=== PATIENT | female | born 1935 | race Caucasian/White ===

== ENCOUNTER 2017-04-08 15:13 | Inpatient (IN) | payer MEDICARE, BC ==
[~2017-04-08] VITALS: Ht 167.6 cm; Wt 76.0 kg
[2017-04-08 15:23] VITALS: BP 124/58; PULSE 74; RESP 18; TEMP 98.7; O2SAT 99
[2017-04-08] MEDS ORDERED: SODIUM CHLORIDE 0.9% FLUSH 10 ML FLUSH IVF PRN (15:30)
[2017-04-08] MEDS ORDERED: ONDANSETRON HCL 4 MG/2 ML VIAL IV PUSH ONE (15:30)
[2017-04-08] MEDS ORDERED: MORPHINE SULFATE 2 MG/ML INJ IV PUSH ONE (15:30)
--- NOTE | 2017-04-08 15:37 | PD ---
HPI Chief Complaint: Fall Time Seen by Provider: 15:24 Travel History International Travel<30 days: No Contact w/Intl Traveler<30days: No Traveled to known affect area: No History of Present Illness HPI 81-year-old female with history of COPD, diabetes, breast cancer, lymphoma, with right-sided mastectomy, presents to the emergency department for evaluation of left hip pain following a fall. Patient was leaving the smart energy specialist's office today when her left leg "gave out." Patient fell to the ground. She was unable to help herself up. Patient went to a neighboring imaging Center and was found to have a femoral neck fracture. We have looked this up through her system and confirmed this. Patient does have shortening and rotation of the left lower extremity. She reports moderate to severe constant pain and inability to move the hip without significant pain. She did not hit her head or lose consciousness. She denies any alterations in sensation. Patient also reports that she has developed a cough over the last week to week and a half with mild shortness of breath. She has had no fever and states that her "checks it constantly." Patient also reports scheduled paracentesis on Tuesday for ascites. She has no other symptoms to report at this time. [facility] Past Medical History Cancer: Yes Diabetes: Yes Hypertension: Yes Social History Alcohol Use: No Tobacco Use: No Substance Use: No Allergies-Medications (Allergen,Severity, Reaction): Coded Allergies: No Known Allergies (Unverified , 04/08/17) Reported Meds & Prescriptions Reported Meds & Active Scripts Active Reported Ventolin Hfa 18 GM Inh (Albuterol Sulfate) 90 Mcg/Act Aer 1 Puff INH Q4H PRN Utibron Neohaler 27.5-15.6 Mcg (Indacaterol/Glycopyrrolate) 27.5 Mcg-15.6 Mcg Cap.w.dev Lasix (Furosemide) 40 Mg Tab 40 Mg PO DAILY Verapamil (Verapamil HCl) 80 Mg Tab 80 Mg PO DAILY Ropinirole 1 Mg Tab 1 Mg HS Oxybutynin ER 24 HR (Oxybutynin Chloride) 10 Mg Tab 10 Mg PO DAILY Omeprazole 40 Mg Cap 40 Mg DAILY Metformin (Metformin HCl) 500 Mg Tab 500 Mg PO BIDPC Lisinopril 10 Mg Tab 10 Mg PO BID Pravastatin 10 Mg Tab 10 Mg PO DAILY Gabapentin 300 Mg Cap 300 Mg PO TID Colace (Docusate Sodium) 100 Mg Capsule Review of Systems Except as stated in HPI: all other systems reviewed are Neg Physical Exam Narrative GENERAL: Well-nourished elderly female patient, sitting in bed in no acute distress. SKIN: Focused skin assessment warm/dry. HEAD: Atraumatic. Normocephalic. EYES: Pupils equal and round. No scleral icterus. No injection or drainage. ENT: No nasal bleeding or discharge. Mucous membranes pink and moist. NECK: Trachea midline. No JVD. CARDIOVASCULAR: Elevated rate and rhythm. RESPIRATORY: No accessory muscle use. Coarse throughout, diminished bases to auscultation. Breath sounds equal bilaterally. Left anterior port in place. GASTROINTESTINAL: Abdomen rotund, soft, non-tender, nondistended. Hepatic and splenic margins not palpable. MUSCULOSKELETAL: No obvious deformities. No clubbing. No cyanosis. No edema. Shortening and rotation of the left lower extremity. Distal pulses are palpable. Cap refill is within normal limits. NEUROLOGICAL: Awake and alert. No obvious cranial nerve deficits. Motor grossly within normal limits. Normal speech. PSYCHIATRIC: Appropriate mood and affect; insight and judgment normal. Data Data Last Documented VS Vital Signs Date Time Temp Pulse Resp B/P (MAP) Pulse Ox O2 Delivery O2 Flow Rate FiO2 04/08/17 18:00 70 18 116/53 (74) 94 Nasal Cannula 2.00 04/08/17 15:23 98.7 Orders Orders Electrocardiogram (04/08/17 15:25) Basic Metabolic Panel (Bmp) (04/08/17 15:25) Complete Blood Count With Diff (04/08/17 15:25) Prothrombin Time / Inr (Pt) (04/08/17 15:25) Act Partial Throm Time (Ptt) (04/08/17 15:25) Chest, Single Ap (04/08/17 15:25) Ecg Monitoring (04/08/17 15:25) Bilateral Bp Monitoring (04/08/17 15:25) Iv Access Insert/Monitor (04/08/17 15:25) Oximetry (04/08/17 15:25) Oxygen Administration (04/08/17 15:25) Sodium Chloride 0.9% Flush (Ns Flush) (04/08/17 15:30) Morphine Inj (Morphine Inj) (04/08/17 15:30) Ondansetron Inj (Zofran Inj) (04/08/17 15:30) Admit Order (Ed Use Only) (04/08/17 18:21) Consult Orthopedic (04/08/17 ) Labs Laboratory Tests Test 04/08/17 16:00 White Blood Count 10.8 TH/MM3 Red Blood Count 3.04 MIL/MM3 Hemoglobin 8.5 GM/DL Hematocrit 25.4 % Mean Corpuscular Volume 83.5 FL Mean Corpuscular Hemoglobin 28.0 PG Mean Corpuscular Hemoglobin Concent 33.5 % Red Cell Distribution Width 18.0 % Platelet Count 69 TH/MM3 Mean Platelet Volume 10.5 FL Neutrophils (%) (Auto) 80.2 % Lymphocytes (%) (Auto) 4.5 % Monocytes (%) (Auto) 14.6 % Eosinophils (%) (Auto) 0.5 % Basophils (%) (Auto) 0.2 % Neutrophils # (Auto) 8.7 TH/MM3 Lymphocytes # (Auto) 0.5 TH/MM3 Monocytes # (Auto) 1.6 TH/MM3 Eosinophils # (Auto) 0.1 TH/MM3 Basophils # (Auto) 0.0 TH/MM3 CBC Comment AUTO DIFF Differential Comment AUTO DIFF CONFIRMED Platelet Estimate LOW Platelet Morphology Comment NORMAL Ovalocytes 1+ Keratocytes OCC Prothrombin Time 12.6 SEC Prothromb Time International Ratio 1.2 RATIO Activated Partial Thromboplast Time 34.3 SEC Blood Urea Nitrogen 19 MG/DL Creatinine 0.95 MG/DL Random Glucose 117 MG/DL Calcium Level 7.9 MG/DL Sodium Level 141 MEQ/L Potassium Level 3.6 MEQ/L Chloride Level 108 MEQ/L Carbon Dioxide Level 24.4 MEQ/L Anion Gap 9 MEQ/L Estimat Glomerular Filtration Rate 56 ML/MIN [facility] Medical Decision Making Medical Screen Exam Complete: Yes Emergency Medical Condition: Yes Medical Record Reviewed: Yes Differential Diagnosis Fracture versus sprain versus dislocation versus contusion Narrative Course 81-year-old female presents to the emergency department for evaluation left hip injury. X-ray imaging is obtained through [facility] and femoral neck fracture is confirmed. Patient is treated for pain. Preop lab work and chest x-ray is complete. Laboratory Tests Test 04/08/17 16:00 White Blood Count 10.8 TH/MM3 Red Blood Count 3.04 MIL/MM3 Hemoglobin 8.5 GM/DL Hematocrit 25.4 % Mean Corpuscular Volume 83.5 FL Mean Corpuscular Hemoglobin 28.0 PG Mean Corpuscular Hemoglobin Concent 33.5 % Red Cell Distribution Width 18.0 % Platelet Count 69 TH/MM3 Mean Platelet Volume 10.5 FL Neutrophils (%) (Auto) 80.2 % Lymphocytes (%) (Auto) 4.5 % Monocytes (%) (Auto) 14.6 % Eosinophils (%) (Auto) 0.5 % Basophils (%) (Auto) 0.2 % Neutrophils # (Auto) 8.7 TH/MM3 Lymphocytes # (Auto) 0.5 TH/MM3 Monocytes # (Auto) 1.6 TH/MM3 Eosinophils # (Auto) 0.1 TH/MM3 Basophils # (Auto) 0.0 TH/MM3 CBC Comment AUTO DIFF Differential Comment AUTO DIFF CONFIRMED Platelet Estimate LOW Platelet Morphology Comment NORMAL Ovalocytes 1+ Keratocytes OCC Prothrombin Time 12.6 SEC Prothromb Time International Ratio 1.2 RATIO Activated Partial Thromboplast Time 34.3 SEC Blood Urea Nitrogen 19 MG/DL Creatinine 0.95 MG/DL Random Glucose 117 MG/DL Calcium Level 7.9 MG/DL Sodium Level 141 MEQ/L Potassium Level 3.6 MEQ/L Chloride Level 108 MEQ/L Carbon Dioxide Level 24.4 MEQ/L Anion Gap 9 MEQ/L Estimat Glomerular Filtration Rate 56 ML/MIN Last Impressions Chest X-Ray 04/08/17 1525 Signed Impressions: Service Date/Time: Saturday, April 08, 2017 16:13 - CONCLUSION: 1. Mild consolidation in the right lung base concerning for pneumonia or 2. Air is also more patchy airspace disease in both lower lobes as well. 3. Status post right mastectomy and axillary dissection. Rell Flores MD Have reviewed the findings with my attending physician. We'll defer antibiotic coverage for possible pneumonia to medicine team patient is afebrile and without leukocytosis. She does have a history of this lady's and is to have paracentesis on Tuesday per her report. I discussed the patient with the resident team. Patient be admitted to their service. Consult has been placed orthopedic surgery. Diagnosis Primary Impression: Left displaced femoral neck fracture Additional Impressions: Lung consolidation Ascitic fluid Qualified Codes: R18.8 - Other ascites Admitting Information Admitting Physician Requests: Admit Condition: Stable Lindsay Rosa IKER Apr 08, 2017 15:37
[2017-04-08 15:44] VITALS: BP 128/60; PULSE 72; RESP 20; O2SAT 94
--- NOTE | 2017-04-08 16:37 | RADRPT ---
EXAM DATE/TIME: 04/08/2017 16:13 [place] COMPARISON: No previous studies available for comparison. INDICATIONS : Patient presents with fractured hip post fall. MEDICAL HISTORY : None. SURGICAL HISTORY : ACF ENCOUNTER: Initial ACUITY: 1 day PAIN SCORE: 2/10 LOCATION: Bilateral upper chest FINDINGS: A single portable AP supine view of the chest was obtained and demonstrates mild consolidation of the right lung base. There is more patchy airspace disease in both lower lobes. The heart size is within normal limits. There are atherosclerotic changes in the aorta. There is a left subclavian central ve nous detectable catheter in place with no pneumothorax. Patient is status post lower cervical fusion. Patient status post right mastectomy and axillary dissection. CONCLUSION: 1. Mild consolidation in the right lung base concerning for pneumonia or 2. Air is also more patchy airspace disease in both lower lobes as well. 3. Status post right mastectomy and axillary dissection. Rell Flores MD on April 08, 2017 at 16:33 Board Certified Radiologist. This report was verified electronically.
[2017-04-08 16:44] LABS: AUTOMATED NEUTROPHIL # 8.7 TH/MM3 (1.8-7.7); BASOPHIL % 0.2 % (0.0-2.0); EOSINOPHIL # 0.1 TH/MM3 (0-0.4); EOSINOPHIL % 0.5 % (0.0-4.0); HEMATOCRIT 25.4 % (35.0-46.0); HEMOGLOBIN 8.5 GM/DL (11.6-15.3); LYMPH % 4.5 % (9.0-44.0); LYMPHOCYTE # 0.5 TH/MM3 (1.0-4.8); MEAN CELL VOLUME 83.5 FL (80.0-100.0); MEAN CORPUSCULAR HGB CONC 33.5 % (32.0-36.0); MEAN PLATELET VOLUME 10.5 FL (7.0-11.0); MONO % 14.6 % (0.0-8.0); MONOCYTE # 1.6 TH/MM3 (0-0.9); NEUT % 80.2 % (16.0-70.0); PLATELET COUNT 69 TH/MM3 (150-450); RED BLOOD COUNT 3.04 MIL/MM3 (4.00-5.30); WHITE BLOOD COUNT 10.8 TH/MM3 (4.0-11.0)
[2017-04-08 16:54] LABS: INTERNATIONAL NORMALIZED RATIO 1.2 RATIO; PROTHROMBIN TIME - PATIENT 12.6 SEC (9.8-11.6)
[2017-04-08 17:10] LABS: BICARBONATE 24.4 MEQ/L (21.0-32.0); CALCIUM 7.9 MG/DL (8.5-10.1); CREATININE 0.95 MG/DL (0.50-1.00)
--- NOTE | 2017-04-08 17:11 | PD ---
Data Data Last Documented VS Vital Signs Date Time Temp Pulse Resp B/P (MAP) Pulse Ox O2 Delivery O2 Flow Rate FiO2 04/08/17 15:44 72 20 128/60 (82) 94 Nasal Cannula 2.00 04/08/17 15:23 98.7 Orders Orders Electrocardiogram (04/08/17 15:25) Basic Metabolic Panel (Bmp) (04/08/17 15:25) Complete Blood Count With Diff (04/08/17 15:25) Prothrombin Time / Inr (Pt) (04/08/17 15:25) Act Partial Throm Time (Ptt) (04/08/17 15:25) Chest, Single Ap (04/08/17 15:25) Ecg Monitoring (04/08/17 15:25) Bilateral Bp Monitoring (04/08/17 15:25) Iv Access Insert/Monitor (04/08/17 15:25) Oximetry (04/08/17 15:25) Oxygen Administration (04/08/17 15:25) Sodium Chloride 0.9% Flush (Ns Flush) (04/08/17 15:30) Morphine Inj (Morphine Inj) (04/08/17 15:30) Ondansetron Inj (Zofran Inj) (04/08/17 15:30) Labs Laboratory Tests Test 04/08/17 16:00 White Blood Count 10.8 TH/MM3 Red Blood Count 3.04 MIL/MM3 Hemoglobin 8.5 GM/DL Hematocrit 25.4 % Mean Corpuscular Volume 83.5 FL Mean Corpuscular Hemoglobin 28.0 PG Mean Corpuscular Hemoglobin Concent 33.5 % Red Cell Distribution Width 18.0 % Platelet Count 69 TH/MM3 Mean Platelet Volume 10.5 FL Neutrophils (%) (Auto) 80.2 % Lymphocytes (%) (Auto) 4.5 % Monocytes (%) (Auto) 14.6 % Eosinophils (%) (Auto) 0.5 % Basophils (%) (Auto) 0.2 % Neutrophils # (Auto) 8.7 TH/MM3 Lymphocytes # (Auto) 0.5 TH/MM3 Monocytes # (Auto) 1.6 TH/MM3 Eosinophils # (Auto) 0.1 TH/MM3 Basophils # (Auto) 0.0 TH/MM3 CBC Comment AUTO DIFF Prothrombin Time 12.6 SEC Prothromb Time International Ratio 1.2 RATIO Activated Partial Thromboplast Time 34.3 SEC Blood Urea Nitrogen 19 MG/DL Creatinine 0.95 MG/DL Random Glucose 117 MG/DL Calcium Level 7.9 MG/DL Sodium Level 141 MEQ/L Potassium Level 3.6 MEQ/L Chloride Level 108 MEQ/L Carbon Dioxide Level 24.4 MEQ/L Anion Gap 9 MEQ/L Estimat Glomerular Filtration Rate 56 ML/MIN MDM Supervised Visit with AZAM: Yes Narrative Course The history, exam, and medical decision-making in the associated mid-level provider note were completed with my assistance. I reviewed and agree with the findings presented. I attest that I had a [id number] encounter with the patient on the same day, and personally performed and documented my assessment and findings in the medical record. *My assessment and Findings: 81-year-old woman, mechanical fall, outpatient imaging confirmed femoral neck fracture. Will need admission to medicine. OrthO consult. Eyal Chang MD Apr 08, 2017 17:11
[2017-04-08 17:32] LABS: OVALOCYTES 1+ (NORMAL)
[2017-04-08 17:33] LABS: KERATOCYTES OCC (NORMAL)
[2017-04-08 18:00] VITALS: BP 116/53; PULSE 70; RESP 18; O2SAT 94
[2017-04-08] MEDS ORDERED: VENTAER INH (18:18)
[2017-04-08] MEDS ORDERED: PRAV10TA PO (18:18)
[2017-04-08] MEDS ORDERED: METF500T PO (18:18)
[2017-04-08] MEDS ORDERED: VERA80TA PO (18:18)
[2017-04-08] MEDS ORDERED: GABA300C5 PO (18:18)
[2017-04-08] MEDS ORDERED: ROPI1TAB (18:18)
[2017-04-08] MEDS ORDERED: COLA100C5 (18:18)
[2017-04-08] MEDS ORDERED: OXYB10TA PO (18:18)
[2017-04-08] MEDS ORDERED: FURO1TAB60 PO (18:18)
[2017-04-08] MEDS ORDERED: INDA1CAP2 (18:18)
[2017-04-08] MEDS ORDERED: LISI10TA3 PO (18:18)
[2017-04-08] MEDS ORDERED: OMEP40CA2 (18:18)
--- NOTE | 2017-04-08 18:51 | HHI.HP ---
[facility] Service Family Medicine Primary Care Physician Cornell Jordan M.D. Admission Diagnosis L femoral neck fracture; pulmonary infiltrate; hx of infiltrates Diagnoses: International Travel<30 Days: No Contact w/Intl Traveler<30days: No Known Affected Area: No History of Present Illness Mrs. Rodriguez is a 81 y/o F presenting to the ED after a fall. 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 This resulted in her full and hip first to the ground. She immediately felt 10/10 hip pain on the left side. She denies any "pop" to her knowledge. She is able to remember the whole episode and there is no loss of consciousness. After falling, she then presented to an outpatient radiology Center in the [facility]. There she was diagnosed with a left femoral neck fracture. Her only other complaint today is abdominal distention. She reports that she is scheduled for a ascitic fluid drainage on Tuesday at 0800. However she is unable to complete her past medical history cannot inform the medical team of her medications or prior diagnoses. She is currently requesting that drainage occur while she is in the hospital. Otherwise she has no complaints and denies any fevers, chills, shortness of breath, chest, back, abdominal pain, or calf tenderness. (Fredy Main MD R2) Review of Systems Constitutional: DENIES: Fever, Chills Eyes: DENIES: Blurred vision, Double Vision Ears, nose, mouth, throat: DENIES: Throat pain, Running Nose Respiratory: COMPLAINS OF: Cough, DENIES: Shortness of breath Cardiovascular: DENIES: Chest pain, Syncope Gastrointestinal: DENIES: Diarrhea, Nausea, Vomiting Genitourinary: DENIES: Dysuria Musculoskeletal: COMPLAINS OF: Joint pain, Muscle aches, Back pain Integumentary: DENIES: Rash Hematologic/lymphatic: DENIES: Lymphadenopathy Immunologic/allergic: DENIES: Urticaria Neurologic: DENIES: Headache Psychiatric: DENIES: Mood changes (Fredy Main MD R2) Past Family Social History Past Medical History Per chart review, COPD, diabetes, breast cancer, lymphoma Past Surgical History Per chart review, right mastectomy (Fredy Main MD R2) Allergies: Coded Allergies: No Known Allergies (Unverified , 04/08/17) Family History Patient does not report significant family medical history Social History Patient currently lives in a condo during the winter with her from [place]. Patient denies any tobacco, alcohol, or illicit drug history. (Fredy Main MD R2) Physical Exam Vital Signs Vital Signs Date Time Temp Pulse Resp B/P (MAP) Pulse Ox O2 Delivery O2 Flow Rate FiO2 04/08/17 18:00 70 18 116/53 (74) 94 Nasal Cannula 2.00 04/08/17 15:44 72 20 128/60 (82) 94 Nasal Cannula 2.00 04/08/17 15:40 94 Nasal Cannula 2.00 04/08/17 15:38 74 18 94 Nasal Cannula 2.00 04/08/17 15:23 98.7 74 18 124/58 (80) 99 Physical Exam GENERAL: Well-nourished, well-developed female lying in bed in no acute distress. SKIN: Warm and dry. No rash. Multiple skin gutierrez from hitting the pavement S/P fall. No acute bleeding or sites of infection appreciated. Left elbow: Distal left elbow with large blood soaked bandage. Sensation, strength, and range of motion all intact. HEENT: Atraumatic, normocephalic with extraocular motions intact. No rhinorrhea. No visible lymphadenopathy or jugulovenous distension appreciated. CARDIOVASCULAR: Regular rate and rhythm with 2/6 systolic ejection murmur. 2+ pulses in all 4 extremities. RESPIRATORY: Coarse breath sounds throughout both lung dougherty. Poor variation overall secondary to poor inspiratory effort. No increased work of breathing at this time. Left anterior port in place. No crackles, wheezes, or rhonchi appreciated. GASTROINTESTINAL: Abdomen soft, non-tender, nondistended with positive bowel sounds. No masses appreciated. MUSCULOSKELETAL: No cyanosis or edema. No calf tenderness. LLE: Extremity shortened, externally rotated left lower extremity. Pain throughout the extremity with any type of manipulation. Appropriate sensation and warmth appreciated throughout the extremity. Patient able to move all 5 foot digits well. 2+ DP/PT pulses. NEURO/PSYCH: Afocal. Awake, alert, and oriented x3, but is unable to complete full history. Normal speech and judgement. Laboratory Laboratory Tests Test 04/08/17 16:00 White Blood Count 10.8 Red Blood Count 3.04 Hemoglobin 8.5 Hematocrit 25.4 Mean Corpuscular Volume 83.5 Mean Corpuscular Hemoglobin 28.0 Mean Corpuscular Hemoglobin Concent 33.5 Red Cell Distribution Width 18.0 Platelet Count 69 Mean Platelet Volume 10.5 Neutrophils (%) (Auto) 80.2 Lymphocytes (%) (Auto) 4.5 Monocytes (%) (Auto) 14.6 Eosinophils (%) (Auto) 0.5 Basophils (%) (Auto) 0.2 Neutrophils # (Auto) 8.7 Lymphocytes # (Auto) 0.5 Monocytes # (Auto) 1.6 Eosinophils # (Auto) 0.1 Basophils # (Auto) 0.0 CBC Comment AUTO DIFF Differential Comment AUTO DIFF CONFIRMED Platelet Estimate LOW Platelet Morphology Comment NORMAL Ovalocytes 1+ Keratocytes OCC Prothrombin Time 12.6 Prothromb Time International Ratio 1.2 Activated Partial Thromboplast Time 34.3 Blood Urea Nitrogen 19 Creatinine 0.95 Random Glucose 117 Calcium Level 7.9 Sodium Level 141 Potassium Level 3.6 Chloride Level 108 Carbon Dioxide Level 24.4 Anion Gap 9 Estimat Glomerular Filtration Rate 56 (Fredy Main MD R2) Result Diagram: 04/08/17 1600 04/08/17 1600 Imaging Last 72 hours Impressions Chest X-Ray 04/08/17 1525 Signed Impressions: Service Date/Time: Saturday, April 08, 2017 16:13 - CONCLUSION: 1. Mild consolidation in the right lung base concerning for pneumonia or 2. Air is also more patchy airspace disease in both lower lobes as well. 3. Status post right mastectomy and axillary dissection. Rell Flores MD Pelvis X-Ray 04/08/17 0000 Signed Impressions: Service Date/Time: Saturday, April 08, 2017 20:27 - CONCLUSION: Acute left proximal femur fracture which has the appearance of an intratrochanteric fracture on this limited view. Placido Steward MD (Fredy Main MD R2) Caprini VTE Risk Assessment Caprini VTE Risk Assessment: Mod/High Risk (score >= 2) Caprini Risk Assessment Model Point Value = 1 Point Value = 2 Point Value = 3 Point Value = 5 Age 41-60 Minor surgery BMI > 25 kg/m2 Swollen legs Varicose veins or History of unexplained or recurrent spontaneous Oral contraceptives or hormone replacement Sepsis (< 1 month) Serious lung disease, including pneumonia (< 1 month) Abnormal pulmonary function Acute myocardial infarction Congestive heart failure (< 1 month) History of inflammatory bowel disease Medical patient at bed rest Age 61-74 Arthroscopic surgery Major open surgery (> 45 min) Laparoscopic surgery (> 45 min) Malignancy Confined to bed (> 72 hours) Immobilizing plaster cast Central venous access Age >= 75 History of VTE Family history of VTE Factor V Leiden Prothrombin [id number] Lupus anticoagulant Anticardiolipin antibodies Elevated serum homocysteine Heparin-induced thrombocytopenia Other congenital or acquired thrombophilia Stroke (< 1 month) Elective arthroplasty Hip, pelvis, or leg fracture Acute spinal cord injury (< 1 month) Prophylaxis Regimen Total Risk Factor Score Risk Level Prophylaxis Regimen 0-1 Low Early ambulation 2 Moderate Order ONE of the following: *Sequential Compression Device (SCD) *Heparin 5000 units SQ BID 3-4 Higher Order ONE of the following medications: *Heparin 5000 units SQ TID *Enoxaparin/Lovenox 40 mg SQ daily (WT < 150 kg, CrCl > 30 mL/min) *Enoxaparin/Lovenox 30 mg SQ daily (WT < 150 kg, CrCl > 10-29 mL/min) *Enoxaparin/Lovenox 30 mg SQ BID (WT < 150 kg, CrCl > 30 mL/min) AND/OR *Sequential Compression Device (SCD) 5 or more Highest Order ONE of the following medications: *Heparin 5000 units SQ TID (Preferred with Epidurals) *Enoxaparin/Lovenox 40 mg SQ daily (WT < 150 kg, CrCl > 30 mL/min) *Enoxaparin/Lovenox 30 mg SQ daily (WT < 150 kg, CrCl > 10-29 mL/min) *Enoxaparin/Lovenox 30 mg SQ BID (WT < 150 kg, CrCl > 30 mL/min) AND *Sequential Compression Device (SCD) (Ferdy Main MD R2) Assessment and Plan Assessment and Plan Mrs. Rodriguez is a 81-year-old female presenting with left femoral neck fracture after fall found to have community acquired pneumonia. Code Status Full code Discussed Condition With SHAKA Graves (Fredy Main MD R2) Attending Attestation THIS CASE WAS DISCUSSED WITH THE RESIDENT PHYSICIANS. I HAVE REVIEWED THE RECORD AND AGREE WITH THE ABOVE NOTE AND PLAN OF CARE WAS DISCUSSED. I HAVE AUTHORIZED THE ORDER FOR ADMISSION TO AN IN-PATIENT STATUS. (Steve Pinzon MD) Problem List: (1) Left displaced femoral neck fracture ICD Codes: S72.002A - Fracture of unspecified part of neck of left femur, initial encounter for closed fracture Status: Acute Plan: -Pelvis x-ray: Acute left proximal femur fracture which has the appearance of an intratrochanteric fracture on this limited view -Orthopedic surgery consulted, patient nothing by mouth after midnight for possible procedure in a.m. -Eloy when necessary for pain control with morphine when necessary for breakthrough pain -Ice packs to affected area (2) Community acquired bacterial pneumonia ICD Codes: J15.9 - Unspecified bacterial pneumonia Status: Acute Plan: -CXR shows mild consolidation in right lung base concerning for pneumonia. Patchy airspace disease in both lower lobes as well. Status post right mastectomy and axillary dissection. -WBC 10.8, neutrophil % 80.2, temp 98.2 supporting infectious eitiology. -Azithromycin 500 mg IV every 24 hours x 5 days. -Rocephin 1 g IV every 24 hours for duration of hospitalization. -Duonebs and albuterol every 4 hours when necessary for shortness of breath/ wheezing -Supplemental O2 and pulse ox monitoring. -Acapella, incentive spirometer. -Tylenol, Tessalon available as PRNs. (3) COPD (chronic obstructive pulmonary disease) ICD Codes: J44.9 - Chronic obstructive pulmonary disease, unspecified Status: Chronic Plan: -Breathing treatments as above -Spriva daily in place of utibron inhaler -Incentive spirometer, acapella, respiratory cpt (4) Ascitic fluid ICD Codes: R18.8 - Other ascites Status: Acute Plan: -Patient with appointment on 04/12/17, for ascitic fluid drainage (5) Tremor ICD Codes: R25.1 - Tremor, unspecified Status: Chronic Plan: -Continue ropinirole (6) Diabetes mellitus ICD Codes: E11.9 - Type 2 diabetes mellitus without complications Status: Chronic Plan: -Hold home metformin -Continue gabapentin and pravastatin -Sliding scale insulin per protocol (7) HTN (hypertension) ICD Codes: I10 - Essential (primary) hypertension Status: Chronic Plan: -Continue Lasix, lisinopril, and verapamil (8) Nutrition, metabolism, and development symptoms ICD Codes: R63.8 - Other symptoms and signs concerning food and fluid intake Status: Acute Plan: -Diet: Nothing by mouth after midnight for possible procedure in a.m. -Fluids: Patient tolerating fluids currently by mouth -Electrolytes: Within normal limits, continue to monitor (9) No contraindication to deep vein thrombosis (DVT) prophylaxis ICD Codes: Z78.9 - Other specified health status Status: Acute Plan: -Hold pharmacological DVT prophylaxis for possible procedure -SCDs to unaffected leg (Fredy Main MD R2) Physician Certification 2 Midnight Certification Type: Admission for Inpatient Services Order for Inpatient Services The services are ordered in accordance with Medicare regulations or non- Medicare payer requirements, as applicable. In the case of services not specified as inpatient-only, they are appropriately provided as inpatient services in accordance with the 2-midnight benchmark. Estimated LOS (days): 3 3 days is the estimated time the patient will need to remain in the hospital, assuming treatment plan goals are met and no additional complications. Post-Hospital Plan: Home (Fredy Main MD R2) Problem Qualifiers (1) Ascitic fluid: Qualified Codes: R18.8 - Other ascites Fredy Main MD R2 Apr 08, 2017 18:51 Steve Pinzon MD Apr 09, 2017 10:49
[2017-04-08 19:15] VITALS: BP 109/56; PULSE 75; RESP 18; O2SAT 97
[2017-04-08] MEDS ORDERED: ALBUTEROL SULFATE 90 MCG/ACT HFA 8 GM INHALER INH PRN (19:30)
[2017-04-08] MEDS ORDERED: GLUCAGON 1 MG/ML VIAL OTHER PRN (19:30)
[2017-04-08] MEDS ORDERED: DEXTROSE 50% IN WATER 50 ML VIAL(D50) IV PUSH PRN (19:30)
[2017-04-08] MEDS ORDERED: BISACODYL 10 MG SUPP RECTAL PRN (19:45)
[2017-04-08] MEDS ORDERED: MAGNESIUM HYDROXIDE SUSP 30 ML CUP PO PRN (19:45)
[2017-04-08] MEDS ORDERED: RESP: ALBUTEROL 2.5 MG/IPRATROPIUM 0.5 MG NEB (PRN) INH (19:45)
[2017-04-08] MEDS ORDERED: MORPHINE SULFATE 2 MG/ML INJ IV PUSH PRN (19:45)
[2017-04-08] MEDS ORDERED: SODIUM CHLORIDE 0.9% FLUSH 10 ML FLUSH IV FLUSH PRN (19:45)
[2017-04-08] MEDS ORDERED: ACETAMINOPHEN/HYDROcodone 325 MG/5 MG TAB PO PRN (19:45)
[2017-04-08] MEDS ORDERED: NALOXONE HCL 0.4 MG/ML AMP IV PUSH PRN ×2 (19:45)
[2017-04-08] MEDS ORDERED: ONDANSETRON HCL 4 MG/2 ML VIAL IVP PRN (19:45)
[2017-04-08] MEDS ORDERED: ACETAMINOPHEN 325 MG TAB PO PRN (19:45)
[2017-04-08] MEDS ORDERED: ACETAMINOPHEN/HYDROcodone 325 MG/7.5 MG TAB PO PRN (19:45)
[2017-04-08 19:49] VITALS: O2SAT 98
--- NOTE | 2017-04-08 20:21 | MB ---
cc: GRACE SHEPPARD M.D. DATE OF CONSULTATION: 04/08/2017. REASON FOR CONSULTATION: Left hip fracture. HISTORY OF PRESENT ILLNESS: The patient is an 81-year-old female who has a history of COPD, diabetes, breast cancer, lymphoma and right-sided mastectomy. The patient came to the emergency room after she had a fall at the managed care manager's office. She says typically her walks next to her to give her some stability for ambulation but he was not there at that time and she fell. She said that her left leg gave out on her and she landed onto the left hip and noticed immediate pain. She went to obtain imaging studies at [facility]. She was found to have a hip fracture. She was then sent to the emergency room. The patient describes pain around the left hip. She says that the left elbow did have a skin laceration which was tended to by the emergency room but ultimately this does not cause her a significant amount of pain. PAST MEDICAL HISTORY: Her medical history is as above. Just a history of cancer as previously described and hypertension. SOCIAL HISTORY: The patient does not smoke or drink alcohol. ALLERGIES: NO KNOWN DRUG ALLERGIES. MEDICATIONS: See the chart. According to the chart, I do not see her on any blood thinners. REVIEW OF SYSTEMS: A twelve-point review of systems is negative except as noted in the history of present illness. FAMILY HISTORY: Noncontributory. PHYSICAL EXAMINATION: VITAL SIGNS: On physical examination, the patient's temperature is 98.7, pulse is 70, respirations 18, blood pressure 116/53. GENERAL: The patient is awake, alert and oriented times three. She has normal affect, insight and judgment with minimal distress. HEAD, EYES, EARS, NOSE, THROAT: Her head is atraumatic. Oropharynx is moist. Extraocular muscles are intact. NECK: The neck is supple. LUNGS: Lungs do show some rhonchi. HEART: Regular rhythm. ABDOMEN: Abdomen is soft and nontender. EXTREMITIES: The left upper extremity has Tegaderm applied with moderate bleeding around this. Her elbow range of motion was good without any pain. Examination of the left hip shows some minimal swelling. No wounds were noted. She actively moves the toes well on the left foot. She has 2+ dorsalis pedis pulse. The left knee had no tenderness. The right knee and ankle had no tenderness. Normal alignment. She is neurovascularly intact on the right lower extremity. IMAGING STUDIES: I reviewed imaging which are on [facility] and show the patient has a left hip displaced femoral neck fracture. X-rays of the femur were not significantly remarkable other than the fracture of the hip. LABORATORY STUDIES: Normal white count at 10.8 but a low hematocrit at 25.4 with low platelets of 69,000. Coagulation studies show an INR of 1.2. Chemistries: Creatinine is 0.95. IMPRESSION: 1. Left hip displaced femoral neck fracture. 2. Left elbow laceration. 3. History of COPD. 4. Diabetes. 5. Breast cancer. 6. Lymphoma. 7. Hypertension. DECISION-MAKING: I discussed the diagnosis in detail with the patient. We will continue with conservative management for the left elbow skin tear. As far as the left hip is concerned, I do feel that we should move forward with urgent surgical management, nonoperative management will likely lead to severe dysfunction of the leg including potentially inability to ambulate long-term which could lead to bed sores, pneumonia, DVT and . I do recommend the urgent surgical management to consist of left hip hemiarthroplasty. She understands there are risks associated with surgery such as injury to nerves, blood vessels, bleeding, infection, failure of hardware, need for re-operation, continued pain, loss of range of motion of associated joints, leg length discrepancy, dislocation, DVT, pulmonary embolus, pneumonia and . Based on the x-ray examination, I did not see obvious signs of metastatic disease about the hip based on the x-rays since she does have a history of the breast cancer. She does have a low hematocrit as well which definitely increases the chance of her requiring postoperative transfusion. We will postoperative course including potential need for inpatient rehabilitation. All questions have been answered. MD NOELLE Locke/LUMA /7:53 PM /8:01 PM
[2017-04-08 20:35] VITALS: BP 110/53; PULSE 83; RESP 20; TEMP 98.4; O2SAT 100
[2017-04-08] MEDS: INSULIN ASPART SUPPLEMENTAL SCALE SQ SCH (21:00)
[2017-04-08] MEDS ORDERED: AZITHROMYCIN INJ 500 MG in SODIUM CHLOR 0.9% 250 ML INJ 250 ML IV SCH (21:00)
[2017-04-08] MEDS: SODIUM CHLOR 0.9% 1000 ML INJ 1,000 ML IV SCH (21:22)
[2017-04-08] MEDS: DOCUSATE SODIUM 50 MG/SENNA 8.6 MG TAB PO SCH (21:23)
[2017-04-08] MEDS: SODIUM CHLORIDE 0.9% FLUSH 10 ML FLUSH IV FLUSH SCH (21:23)
[2017-04-08] MEDS: LISINOPRIL 10 MG TAB PO SCH (21:23)
--- NOTE | 2017-04-08 21:48 | RADRPT ---
EXAM DATE/TIME: 04/08/2017 20:27 [facility] COMPARISON: No previous studies available for comparison. INDICATIONS : Left hip pain post fall. MEDICAL HISTORY : None. SURGICAL HISTORY : None. ENCOUNTER: Initial ACUITY: 1 day PAIN SCORE: 10/10 LOCATION: Left hip FINDINGS: There is an acute left proximal femur fracture which has the appearance of an intratrochanteric fract ure on this limited view. CONCLUSION: Acute left proximal femur fracture which has the appearance of an intratrochanteric f racture on this limited view. Placido Steward MD on April 08, 2017 at 21:44 Board Certified Radiologist. This report was verified electronically.
[2017-04-08] MEDS ORDERED: cefTRIAXone INJ 1,000 MG in SODIUM CHLORIDE 0.9% INJ 100 ML IV SCH (22:00)
[2017-04-09] VITALS (13 sets, daily range): BP systolic 94–161; BP diastolic 48–74; PULSE 58–102; RESP 16–23; TEMP 95.5–98.9; O2SAT 92–100
[2017-04-09] MEDS ORDERED: POVIDONE IODINE 5% (ANTISEPSIS KIT) 4 APPLICATIONS EACH NARE PRN (01:15)
[2017-04-09] MEDS ORDERED: CHLORHEXIDINE GLUCONATE 2 % 1 PACK (2 CLOTHS) TOPICAL PRN (01:15)
[2017-04-09] MEDS ORDERED: METOPROLOL TARTRATE 25 MG TAB PO PRN (01:15)
[2017-04-09] MEDS ORDERED: LACTATED RINGER'S 1000 ML IV PRN (01:15)
[2017-04-09] MEDS ORDERED: SODIUM CHLORID 0.9% 500 ML IV PRN (01:15)
[2017-04-09] MEDS: SODIUM CHLOR 0.9% 1000 ML INJ 1,000 ML IV SCH ×4 (06:14→19:30)
[2017-04-09 06:42] LABS: AUTOMATED NEUTROPHIL # 6.4 TH/MM3 (1.8-7.7); BASOPHIL % 0.2 % (0.0-2.0); EOSINOPHIL # 0.1 TH/MM3 (0-0.4); EOSINOPHIL % 0.9 % (0.0-4.0); HEMATOCRIT 21.7 % (35.0-46.0); HEMOGLOBIN 7.2 GM/DL (11.6-15.3); LYMPHOCYTE # 0.7 TH/MM3 (1.0-4.8); MEAN CELL VOLUME 82.3 FL (80.0-100.0); MEAN CORPUSCULAR HEMOGLOBIN 27.5 PG (27.0-34.0); MEAN CORPUSCULAR HGB CONC 33.4 % (32.0-36.0); MEAN PLATELET VOLUME 10.4 FL (7.0-11.0); MONO % 20.2 % (0.0-8.0); MONOCYTE # 1.8 TH/MM3 (0-0.9); NEUT % 70.7 % (16.0-70.0); PLATELET COUNT 60 TH/MM3 (150-450); RED BLOOD COUNT 2.64 MIL/MM3 (4.00-5.30); RED CELL DISTRIBUTION WIDTH 17.8 % (11.6-17.2); WHITE BLOOD COUNT 9.1 TH/MM3 (4.0-11.0)
[2017-04-09] MEDS ORDERED: VANCOMYCIN HCL 1000 MG VIAL ONE (07:12)
[2017-04-09] MEDS ORDERED: GENTAMICIN SULFATE 80 MG/2 ML VIAL ONE (07:12)
[2017-04-09] MEDS ORDERED: ceFAZolin INJ 1,000 MG VIAL ONE (07:12)
[2017-04-09 07:13] LABS: ALBUMIN 2.6 GM/DL (3.4-5.0); BICARBONATE 26.1 MEQ/L (21.0-32.0); CALCIUM 7.4 MG/DL (8.5-10.1); CALCIUM-PROTEIN CORRECTED 8.7 MG/DL (8.5-10.1); CREATININE 0.89 MG/DL (0.50-1.00); TOTAL BILIRUBIN ADULT 0.6 MG/DL (0.2-1.0); TOTAL PROTEIN 4.8 GM/DL (6.4-8.2)
[2017-04-09] MEDS ORDERED: TRANEXAMIC ACID INJ 700 MG in SODIUM CHLORIDE 0.9% INJ 100 ML IV ONE (07:45)
[2017-04-09 07:57] LABS: KERATOCYTES OCC (NORMAL); OVALOCYTES 1+ (NORMAL)
[2017-04-09] MEDS: PRAVASTATIN SOD 10 MG TAB PO SCH (09:00)
[2017-04-09] MEDS: TOLTERODINE TARTRATE 4 MG CAP LA PO SCH (09:00)
[2017-04-09] MEDS: DOCUSATE SODIUM 50 MG/SENNA 8.6 MG TAB PO SCH ×2 (09:00→20:16)
[2017-04-09] MEDS: TIOTROPIUM BROMIDE 18 MCG INH INH SCH (09:00)
[2017-04-09] MEDS: LISINOPRIL 10 MG TAB PO SCH ×2 (09:00→20:16)
[2017-04-09] MEDS: PANTOPRAZOLE SOD 40 MG DELAYED RELEASE TAB PO SCH (09:00)
[2017-04-09] MEDS: SODIUM CHLORIDE 0.9% FLUSH 10 ML FLUSH IV FLUSH SCH ×2 (09:00→20:16)
[2017-04-09] MEDS: FUROSEMIDE 40 MG TAB PO SCH (09:00)
[2017-04-09] MEDS: VERAPAMIL HCL 80 MG TAB PO SCH (09:00)
[2017-04-09] MEDS: GABAPENTIN 300 MG CAP PO SCH ×3 (09:00→17:19)
--- NOTE | 2017-04-09 09:13 | PD.OP ---
cc: Chad Gordon MD Operative Report Date of Surgery: Apr 09, 2017 Preoperative Diagnosis: Left hip displaced femoral neck fracture Postoperative Diagnosis: Same Procedure: Left hip hemiarthroplasty Anesthesia: Gen. Surgeon: Chad Gordon Power Hammer Operator(s): IKER Mondragon The surgical procedure was assisted by my Advanced Registered Nurse Practitioner. My ENGINEERING DESIGNER presence was necessary throughout this case for the manipulation and positioning of the surgical extremity. My ENGINEERING DESIGNER was assisting me throughout the duration of this procedure. The skill set of an Advance Registered Nurse Practitioner was medically necessary to complete this procedure. During the surgical case, the surgical clinical reviewer was working at the back table and the Advance Registered Nurse Practitioner was directly assisting me. Operation and Findings: IMPLANT DESCRIPTION: 1. Corail femoral stem size 12, no collar, standard offset. 2. Bipolar femoral head/neck 49/28, +1.5. ESTIMATED BLOOD LOSS: 100 cc. JUSTIFICATION FOR PROCEDURE: This patient has a displaced femoral neck fracture. The patient understands the risks of surgery include but are not limited to injury to nerves, blood vessels, bleeding, infection, leg length discrepancy, continued pain, inability to ambulate, DVT, pulmonary embolus, pneumonia, stroke, heart attack, and . PROCEDURE: The patient was brought back to the operative theatre. Adequate anesthesia was obtained. The patient received intravenous and vancomycin and Ancef. The patient was carefully placed on the operative table in the lateral decubitus position with an axillary roll and a well-padded down leg. The lower extremity was prepped and draped in the usual sterile fashion. We proceeded with a standard curvilinear incision centered around the tip of the greater trochanter. We then dissected through the deep fascia and placed a Charnley retractor protecting the sciatic nerve. The greater trochanteric bursa was reflected. We then incised through the piriformis attachment and tagged this with a #2 FiberWire. We then incised through the capsule in a T- shaped fashion and tagged this with a #2 FiberWire as well. We identified a displaced femoral neck fracture. An osteotomy was performed through the residual femoral neck. This bone was then removed followed by removal of the femoral head. The acetabulum was inspected and adequate cartilage stock was identified. We then trialed the femoral head in the acetabulum. The proximal femur was prepared with a rongeur, then a box osteotome, then a canal finder followed by a lateralizing reamer. We sequentially broached the proximal femur. We calcar planed the proximal femur and irrigated removing any remnants of the bone. We trialed the hip with the broach in place. The final femoral stem was impacted into position. Leg lengths were evaluated. We evaluated stability of the hip with the hip in the "position of sleep" and the hip flexed up to 90 and internally rotated. We additionally tested both a "shuck" test and hip extension, confirming there was no undue tension while flexing the knee to 90 during full hip extension. The final bipolar head was impacted and the hip was reduced. Once again we irrigated. We then repaired the capsule and the piriformis with the FiberWire suture. The deep fascia was closed with a #2 Stratafix, followed by 2-0 Vicryl in the skin and Dermabond dressing. The post-op plan is to weight-bear as tolerated. We will follow posterior total hip precautions, including the use of a canvas knee splint. DVT prophylaxis will be performed with SCDtoñito, ZENOBIA ibarra, early mobilization, and Lovenox followed by aspirin. Chad Gordon MD Apr 09, 2017 09:12
[2017-04-09] MEDS ORDERED: ENOX40IN SQ (09:15)
[2017-04-09] MEDS ORDERED: ASPI-146 PO (09:15)
[2017-04-09] MEDS ORDERED: NORC5TAB PO (09:15)
[2017-04-09] MEDS ORDERED: DO NOT ADM ANY ANTICOAGULANT DRUGS PRN (09:23)
[2017-04-09] MEDS ORDERED: ALUMINUM/MAGNESIUM/SIMETH 30 ML CUP PO PRN (09:30)
[2017-04-09] MEDS ORDERED: diphenhydrAMINE HCL 50 MG/ML VIAL IV PUSH PRN (09:45)
[2017-04-09] MEDS ORDERED: ONDANSETRON HCL 4 MG/2 ML VIAL IVP PRN (09:45)
[2017-04-09] MEDS ORDERED: NALOXONE HCL 0.4 MG/ML AMP IV PUSH PRN (09:45)
[2017-04-09] MEDS ORDERED: Post-op Orders (for Pharmacy) XX ONE (10:00)
[2017-04-09] MEDS ORDERED: FUROSEMIDE 20 MG/2 ML VIAL IV PUSH SCH (10:00)
[2017-04-09 10:05] LABS: BACTERIA, URINE FEW /hpf; BILIRUBIN, URINE NEG (NEG); BLOOD, URINE MOD (NEG); GLUCOSE,URINE NEG (NEG); KETONE, URINE NEG (NEG); MUCUS URINE MANY /lpf (OCC); NITRITE,URINE NEG (NEG); PH, URINE 5.5 (5.0-8.5); SQUAMOUS EPITHELIAL CELL URINE 10 /hpf (0-5); URINE COLOR YELLOW (YELLW/STRAW); URINE LEUKOCYTE ESTERASE LARGE (NEG); WHITE BLOOD CELL CLUMPS MANY
[2017-04-09] MEDS: INSULIN ASPART SUPPLEMENTAL SCALE SQ SCH ×4 (10:07→21:12)
--- NOTE | 2017-04-09 10:32 | RADRPT ---
EXAM DATE/TIME: 04/09/2017 09:46 [facility] COMPARISON: No previous studies available for comparison. INDICATIONS : Post op left hip replacement MEDICAL HISTORY : None. SURGICAL HISTORY : None. ENCOUNTER: Initial ACUITY: 1 day PAIN SCORE: 0/10 LOCATION: Left hip FINDINGS: Examination of the left hip was performed with AP Pelvis. Left hip prosthesis. No hardware loosening or fracture. Postsurgical changes. The acetabulum is grossly intact. CONCLUSION: 1. Left hip arthroplasty. Avi Lr MD on April 09, 2017 at 10:29 Board Certified Radiologist. This report was verified electronically.
--- NOTE | 2017-04-09 10:49 | HHI.HP ---
[facility] Service Family Medicine Primary Care Physician Cornell Jordan M.D. Admission Diagnosis L femoral neck fracture; pulmonary infiltrate; hx of infiltrates Diagnoses: (1) Left displaced femoral neck fracture (2) Community acquired bacterial pneumonia (3) COPD (chronic obstructive pulmonary disease) (4) Ascitic fluid (5) Tremor (6) Diabetes mellitus (7) HTN (hypertension) (8) Nutrition, metabolism, and development symptoms (9) No contraindication to deep vein thrombosis (DVT) prophylaxis International Travel<30 Days: No Contact w/Intl Traveler<30days: No Known Affected Area: No History of Present Illness Patient was seen in the PACU immediately following left hip surgery for femoral neck fracture. In the PACU, she has no significant complaints and specifically denies chest pain or palpitations. Surgical notes are not available at this time, and the PACU staff is preparing to hang 2 units PRBCs for her anemia. In summary, this is an 81 y/o F presenting to the ED after a fall. 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 This resulted in her full and hip first to the ground. She immediately felt 10/10 hip pain on the left side. She denies any "pop" to her knowledge. She is able to remember the whole episode and there is no loss of consciousness. After falling, she then presented to an outpatient radiology Center in the [facility]. There she was diagnosed with a left femoral neck fracture. Her only other complaint today is abdominal distention. She reports that she is scheduled for a ascitic fluid drainage on Tuesday at 0800. However she is unable to complete her past medical history cannot inform the medical team of her medications or prior diagnoses. She is currently requesting that drainage occur while she is in the hospital. Otherwise she has no complaints and denies any fevers, chills, shortness of breath, chest, back, abdominal pain, or calf tenderness. Past Family Social History Past Medical History Per chart review, COPD, diabetes, breast cancer, lymphoma Past Surgical History Per chart review, right mastectomy Allergies: Coded Allergies: No Known Allergies (Unverified , 04/08/17) Family History Patient does not report significant family medical history Social History Patient currently lives in a condo during the winter with her from [place]. Patient denies any tobacco, alcohol, or illicit drug history. Physical Exam Vital Signs Vital Signs Date Time Temp Pulse Resp B/P (MAP) Pulse Ox O2 Delivery O2 Flow Rate FiO2 04/09/17 10:15 92 18 104/57 (73) 93 Nasal Cannula 4 04/09/17 10:00 97 18 113/60 (77) 92 Nasal Cannula 4 04/09/17 09:50 98.2 99 18 113/62 92 04/09/17 09:45 103 18 105/62 (76) 93 Nasal Cannula 4 04/09/17 09:35 98.3 102 23 111/54 92 04/09/17 09:30 98.3 101 18 111/54 (73) 89 Nasal Cannula 4 04/09/17 04:05 98.2 94 18 109/54 (72) 93 04/09/17 00:35 98.9 86 18 94/48 (63) 92 04/08/17 23:29 Nasal Cannula 2.00 04/08/17 22:46 17 04/08/17 20:35 98.4 83 20 110/53 (72) 100 04/08/17 19:49 98 Nasal Cannula 3.00 04/08/17 19:15 75 18 109/56 (73) 97 Nasal Cannula 2.00 04/08/17 18:00 70 18 116/53 (74) 94 Nasal Cannula 2.00 04/08/17 15:44 72 20 128/60 (82) 94 Nasal Cannula 2.00 04/08/17 15:40 94 Nasal Cannula 2.00 04/08/17 15:38 74 18 94 Nasal Cannula 2.00 04/08/17 15:23 98.7 74 18 124/58 (80) 99 Physical Exam GENERAL: Well-nourished, well-developed female lying in bed in no acute distress. SKIN: Left elbow: Distal left elbow with large skin tear covered with Tegaderm. Sensation, strength, and range of motion all intact. HEENT: Atraumatic, normocephalic CARDIOVASCULAR: Regular rate and rhythm with 2/6 systolic ejection murmur. RESPIRATORY: Coarse breath sounds throughout both lung dougherty. Diffuse expiratory wheezes. Poor inspiratory effort in the PACU. No increased work of breathing at this time. Left anterior port in place. GASTROINTESTINAL: Abdomen soft, non-tender, nondistended with positive bowel sounds. No masses appreciated. MUSCULOSKELETAL: LLE: Wrapped in Fred wrap and in a leg immobilizer. She is able to move her toes and sensation is intact into her foot. Normal capillary refill NEURO/PSYCH: Sedated and drowsy but arousable Laboratory Laboratory Tests Test 04/08/17 16:00 04/09/17 06:15 04/09/17 09:44 White Blood Count 10.8 9.1 Red Blood Count 3.04 2.64 Hemoglobin 8.5 7.2 Hematocrit 25.4 21.7 Mean Corpuscular Volume 83.5 82.3 Mean Corpuscular Hemoglobin 28.0 27.5 Mean Corpuscular Hemoglobin Concent 33.5 33.4 Red Cell Distribution Width 18.0 17.8 Platelet Count 69 60 Mean Platelet Volume 10.5 10.4 Neutrophils (%) (Auto) 80.2 70.7 Lymphocytes (%) (Auto) 4.5 8.0 Monocytes (%) (Auto) 14.6 20.2 Eosinophils (%) (Auto) 0.5 0.9 Basophils (%) (Auto) 0.2 0.2 Neutrophils # (Auto) 8.7 6.4 Lymphocytes # (Auto) 0.5 0.7 Monocytes # (Auto) 1.6 1.8 Eosinophils # (Auto) 0.1 0.1 Basophils # (Auto) 0.0 0.0 CBC Comment AUTO DIFF AUTO DIFF Differential Comment AUTO DIFF CONFIRMED AUTO DIFF CONFIRMED Platelet Estimate LOW LOW Platelet Morphology Comment NORMAL ENLARGED Ovalocytes 1+ 1+ Keratocytes OCC OCC Prothrombin Time 12.6 Prothromb Time International Ratio 1.2 Activated Partial Thromboplast Time 34.3 Blood Urea Nitrogen 19 20 Creatinine 0.95 0.89 Random Glucose 117 113 Calcium Level 7.9 7.4 Sodium Level 141 143 Potassium Level 3.6 4.0 Chloride Level 108 110 Carbon Dioxide Level 24.4 26.1 Anion Gap 9 7 Estimat Glomerular Filtration Rate 56 61 Total Protein 4.8 Albumin 2.6 Alkaline Phosphatase 71 Aspartate Amino Transf (AST/SGOT) 12 Alanine Aminotransferase (ALT/SGPT) 11 Total Bilirubin 0.6 Protein Corrected Calcium 8.7 25-Hydroxy Vitamin D Total 28.2 Urine Color YELLOW Urine Turbidity CLOUDY Urine pH 5.5 Urine Specific Lesage 1.016 Urine Protein 100 Urine Glucose (UA) NEG Urine Ketones NEG Urine Occult Blood MOD Urine Nitrite NEG Urine Bilirubin NEG Urine Urobilinogen LESS THAN 2.0 Urine Leukocyte Esterase LARGE Urine RBC 106 Urine WBC Urine WBC Clumps MANY Urine Squamous Epithelial Cells 10 Urine Bacteria FEW Urine Mucus MANY Urine Yeast (Budding) FEW Microscopic Urinalysis Comment CATH-CULTURE IND Date/Time Source Procedure Growth Status 04/09/17 09:44 Urine Catheterized Urine Urine Culture Pending Received Result Diagram: 04/09/17 0615 04/09/17 0615 Imaging Last 72 hours Impressions Chest X-Ray 04/08/17 1525 Signed Impressions: Service Date/Time: Saturday, April 08, 2017 16:13 - CONCLUSION: 1. Mild consolidation in the right lung base concerning for pneumonia or 2. Air is also more patchy airspace disease in both lower lobes as well. 3. Status post right mastectomy and axillary dissection. Rell Flores MD Pelvis X-Ray 04/08/17 0000 Signed Impressions: Service Date/Time: Saturday, April 08, 2017 20:27 - CONCLUSION: Acute left proximal femur fracture which has the appearance of an intratrochanteric fracture on this limited view. Placido Steward MD Caprini VTE Risk Assessment Caprini VTE Risk Assessment: Mod/High Risk (score >= 2) Caprini Risk Assessment Model Point Value = 1 Point Value = 2 Point Value = 3 Point Value = 5 Age 41-60 Minor surgery BMI > 25 kg/m2 Swollen legs Varicose veins or History of unexplained or recurrent spontaneous Oral contraceptives or hormone replacement Sepsis (< 1 month) Serious lung disease, including pneumonia (< 1 month) Abnormal pulmonary function Acute myocardial infarction Congestive heart failure (< 1 month) History of inflammatory bowel disease Medical patient at bed rest Age 61-74 Arthroscopic surgery Major open surgery (> 45 min) Laparoscopic surgery (> 45 min) Malignancy Confined to bed (> 72 hours) Immobilizing plaster cast Central venous access Age >= 75 History of VTE Family history of VTE Factor V Leiden Prothrombin [id number] Lupus anticoagulant Anticardiolipin antibodies Elevated serum homocysteine Heparin-induced thrombocytopenia Other congenital or acquired thrombophilia Stroke (< 1 month) Elective arthroplasty Hip, pelvis, or leg fracture Acute spinal cord injury (< 1 month) Prophylaxis Regimen Total Risk Factor Score Risk Level Prophylaxis Regimen 0-1 Low Early ambulation 2 Moderate Order ONE of the following: *Sequential Compression Device (SCD) *Heparin 5000 units SQ BID 3-4 Higher Order ONE of the following medications: *Heparin 5000 units SQ TID *Enoxaparin/Lovenox 40 mg SQ daily (WT < 150 kg, CrCl > 30 mL/min) *Enoxaparin/Lovenox 30 mg SQ daily (WT < 150 kg, CrCl > 10-29 mL/min) *Enoxaparin/Lovenox 30 mg SQ BID (WT < 150 kg, CrCl > 30 mL/min) AND/OR *Sequential Compression Device (SCD) 5 or more Highest Order ONE of the following medications: *Heparin 5000 units SQ TID (Preferred with Epidurals) *Enoxaparin/Lovenox 40 mg SQ daily (WT < 150 kg, CrCl > 30 mL/min) *Enoxaparin/Lovenox 30 mg SQ daily (WT < 150 kg, CrCl > 10-29 mL/min) *Enoxaparin/Lovenox 30 mg SQ BID (WT < 150 kg, CrCl > 30 mL/min) AND *Sequential Compression Device (SCD) Assessment and Plan Assessment and Plan Mrs. Rodriguez is a 81-year-old female presenting with left femoral neck fracture after fall found to have community acquired pneumonia. Problem List: (1) Left displaced femoral neck fracture ICD Codes: S72.002A - Fracture of unspecified part of neck of left femur, initial encounter for closed fracture Status: Acute Plan: Status post left hip hemiarthroplasty by Dr. Gordon of orthopedics -Postoperative management per orthopedic surgery Pending 2 units PRBCs due to anemia postoperatively Physical therapy ordered to evaluate patient -Weight-bear as tolerated per orthopedic note following posterior total hip precautions including the use of the Canvas knee splint -DVT prophylaxis with SCDs and ZENOBIA hose as well as Lovenox Pain control with [place] 1-2 tablets as needed based on pain scale and morphine for breakthrough pain Patient placed on a bowel regimen Ice packs to affected area (2) Community acquired bacterial pneumonia ICD Codes: J15.9 - Unspecified bacterial pneumonia Status: Acute Plan: Chest x-ray indicative of a consolidation in the right lung base concerning for pneumonia -May have played a role in her weakness and fall Antibiotics as below: -Azithromycin 500 mg IV every 24 hours x 5 days. -Rocephin 1 g IV every 24 hours for duration of hospitalization. Duonebs and albuterol every 4 hours when necessary for shortness of breath/ wheezing Supplemental O2 and pulse ox monitoring. Acapella, incentive spirometer. Tylenol, Tessalon available as PRNs. (3) Anemia ICD Codes: D64.9 - Anemia, unspecified Plan: 2 units PRBCs ordered for today (04/09/17) - Most recent hemoglobin 7.2 Continue to trend hemoglobins and transfuse as needed (4) COPD (chronic obstructive pulmonary disease) ICD Codes: J44.9 - Chronic obstructive pulmonary disease, unspecified Status: Chronic Plan: -Breathing treatments as above -Spriva daily in place of utibron inhaler -Incentive spirometer, acapella, respiratory cpt (5) Ascitic fluid ICD Codes: R18.8 - Other ascites Status: Acute Plan: Patient with appointment on 04/12/17, for ascitic fluid drainage -We will contact her PCP on Tuesday to identify the source of ascites -Consider ultrasound-guided paracentesis prior to discharge if warranted (6) Tremor ICD Codes: R25.1 - Tremor, unspecified Status: Chronic Plan: -Continue ropinirole (7) Diabetes mellitus ICD Codes: E11.9 - Type 2 diabetes mellitus without complications Status: Chronic Plan: -Hold home metformin -Continue gabapentin and pravastatin -Sliding scale insulin per protocol (8) HTN (hypertension) ICD Codes: I10 - Essential (primary) hypertension Status: Chronic Plan: -Continue Lasix, lisinopril, and verapamil (9) Nutrition, metabolism, and development symptoms ICD Codes: R63.8 - Other symptoms and signs concerning food and fluid intake Status: Acute Plan: -Diet: Nothing by mouth after midnight for possible procedure in a.m. -Fluids: Patient tolerating fluids currently by mouth -Electrolytes: Within normal limits, continue to monitor (10) No contraindication to deep vein thrombosis (DVT) prophylaxis ICD Codes: Z78.9 - Other specified health status Status: Acute Plan: -Hold pharmacological DVT prophylaxis for possible procedure -SCDs to unaffected leg Physician Certification 2 Midnight Certification Type: Admission for Inpatient Services Order for Inpatient Services The services are ordered in accordance with Medicare regulations or non- Medicare payer requirements, as applicable. In the case of services not specified as inpatient-only, they are appropriately provided as inpatient services in accordance with the 2-midnight benchmark. Estimated LOS (days): 2 2 days is the estimated time the patient will need to remain in the hospital, assuming treatment plan goals are met and no additional complications. Post-Hospital Plan: Not yet determined Problem Qualifiers (1) Ascitic fluid: Qualified Codes: R18.8 - Other ascites (2) Anemia: Qualified Codes: D64.9 - Anemia, unspecified Steve Pinzon MD Apr 09, 2017 10:48
[2017-04-09] MEDS ORDERED: TRANEXAMIC ACID IV SCH (11:00)
[2017-04-09] MEDS ORDERED: SODIUM CHLORIDE 0.9% IV SCH (11:00)
[2017-04-09] MEDS ORDERED: DIMETHICONE/OXYBENZONE/PADMIATE LIP BALM 4.25 GM TOPICAL ONE (11:02)
[2017-04-09] MEDS: RESP: ALBUTEROL 2.5 MG/IPRATROPIUM 0.5 MG NEB (SCH) NEB ×3 (11:49→19:45)
[2017-04-09] MEDS ORDERED: ROCURONIUM INJ 50 MG/5 ML SYRINGE IV PUSH ONE (12:00)
[2017-04-09] MEDS ORDERED: NORMOSOL R INJ 1,000 ML IV ONE (12:00)
[2017-04-09] MEDS ORDERED: ONDANSETRON HCL 4 MG/2 ML VIAL IV ONE (12:00)
[2017-04-09] MEDS ORDERED: DEXAMETHASONE SOD PHOS 4 MG/ML VIAL IV ONE (12:00)
[2017-04-09] MEDS ORDERED: PROPOFOL 200 MG/20 ML AMP IV ONE (12:00)
[2017-04-09] MEDS ORDERED: PHENYLEPH/NS 1000 MCG/10 ML SYR IV ONE (12:00)
[2017-04-09] MEDS ORDERED: NEOSTIGMINE 5 MG/5 ML SYRINGE IV PUSH ONE (12:00)
[2017-04-09] MEDS ORDERED: GLYCOPYRROLATE 1 MG/5 ML SYRINGE IV PUSH ONE (12:00)
[2017-04-09] MEDS ORDERED: LIDOCAINE HCL 1% PF 5 ML SYRINGE OTHER ONE (12:00)
[2017-04-09 15:37] LABS: HEMATOCRIT 29.4 % (35.0-46.0); HEMOGLOBIN 9.7 GM/DL (11.6-15.3)
--- NOTE | 2017-04-09 15:48 | EKG ---
Date Performed: 04/08/2017 Time Performed: 16:50:25 PTAGE: 81 years EKG: SLIGHT RIGHT VENTRICULAR CONDUCTION DISTURBANCE POOR INITIAL ANTERIOR FORCES WHICH MAY BE N ORMAL VARIANT Since previous tracing, no significant change noted ABNORMAL ECG PREVIOUS TRACING : 05/31/2000 11.24.38 DOCTOR: Rufus Ball Interpretating Date/Time 04/09/2017 15:48:09
[2017-04-09] MEDS: ACETAMINOPHEN/HYDROcodone 325 MG/5 MG TAB PO PRN (17:19)
[2017-04-09] MEDS ORDERED: ZOLPIDEM TARTRATE 5 MG TAB PO PRN (21:00)
[2017-04-09] MEDS ORDERED: AZITHROMYCIN 250 MG TAB PO SCH (21:00)
[2017-04-09] MEDS: BENZONATATE 100 MG CAP PO PRN (21:12)
[2017-04-10] VITALS (8 sets, daily range): BP systolic 93–104; BP diastolic 52–59; PULSE 96–109; RESP 15–23; TEMP 95.9–99.7; O2SAT 90–98
[2017-04-10] MEDS: RESP: ALBUTEROL 2.5 MG/IPRATROPIUM 0.5 MG NEB (SCH) NEB ×6 (00:16→19:39)
[2017-04-10] MEDS: SODIUM CHLOR 0.9% 1000 ML INJ 1,000 ML IV SCH ×5 (01:31→20:21)
[2017-04-10 06:01] LABS: HEMATOCRIT 24.5 % (35.0-46.0); HEMOGLOBIN 8.2 GM/DL (11.6-15.3); MEAN CELL VOLUME 82.4 FL (80.0-100.0); MEAN CORPUSCULAR HEMOGLOBIN 27.5 PG (27.0-34.0); MEAN CORPUSCULAR HGB CONC 33.4 % (32.0-36.0); PLATELET COUNT 57 TH/MM3 (150-450); RED BLOOD COUNT 2.97 MIL/MM3 (4.00-5.30); WHITE BLOOD COUNT 21.1 TH/MM3 (4.0-11.0)
[2017-04-10 06:15] LABS: ALBUMIN 2.6 GM/DL (3.4-5.0); AST (GOT) 11 U/L (15-37); BICARBONATE 23.7 MEQ/L (21.0-32.0); BLOOD UREA NITROGEN 29 MG/DL (7-18); CALCIUM 7.6 MG/DL (8.5-10.1); CHLORIDE 106 MEQ/L (98-107); CREATININE 1.27 MG/DL (0.50-1.00); GLOMERULAR FILTRATION RATE 40 ML/MIN (>89); GLUCOSE,RANDOM 128 MG/DL (74-106); SODIUM (NA) 140 MEQ/L (136-145)
[2017-04-10 06:16] LABS: ALT (GPT) 10 U/L (10-53)
[2017-04-10] MEDS: ACETAMINOPHEN/HYDROcodone 325 MG/5 MG TAB PO PRN ×3 (06:18→17:08)
[2017-04-10 06:19] LABS: ALKALINE PHOSPHATASE 62 U/L (45-117); TOTAL BILIRUBIN ADULT 0.9 MG/DL (0.2-1.0); TOTAL PROTEIN 4.6 GM/DL (6.4-8.2)
[2017-04-10] MEDS: INSULIN ASPART SUPPLEMENTAL SCALE SQ SCH ×4 (07:44→20:21)
[2017-04-10 08:48] LABS: BANDS 3 % (0-6); LYMPHOCYTES 2 % (9-44); MONOCYTES 13 % (0-8); NEUTROPHIL # MANUAL DIFF 17.9 TH/MM3 (1.8-7.7); POLYS (SEG NEUTROPHILS) 82 % (16-70)
[2017-04-10 08:49] LABS: KERATOCYTES OCC (NORMAL); OVALOCYTES 1+ (NORMAL)
[2017-04-10] MEDS: TOLTERODINE TARTRATE 4 MG CAP LA PO SCH (09:00)
[2017-04-10] MEDS: VERAPAMIL HCL 80 MG TAB PO SCH (09:00)
[2017-04-10] MEDS: LISINOPRIL 10 MG TAB PO SCH ×2 (09:00→20:20)
[2017-04-10] MEDS: SODIUM CHLORIDE 0.9% FLUSH 10 ML FLUSH IV FLUSH SCH ×2 (09:00→20:20)
[2017-04-10] MEDS: TIOTROPIUM BROMIDE 18 MCG INH INH SCH (09:19)
[2017-04-10] MEDS: MAGNESIUM HYDROXIDE SUSP 30 ML CUP PO PRN (09:20)
[2017-04-10] MEDS: ENOXAPARIN SODIUM 40 MG/0.4 ML SYRINGE SQ SCH (09:20)
[2017-04-10] MEDS: LACTULOSE SYRUP 20 GM/30 ML CUP PO PRN (09:20)
[2017-04-10] MEDS: PANTOPRAZOLE SOD 40 MG DELAYED RELEASE TAB PO SCH (09:22)
[2017-04-10] MEDS: GABAPENTIN 300 MG CAP PO SCH ×3 (09:22→17:07)
[2017-04-10] MEDS: PRAVASTATIN SOD 10 MG TAB PO SCH (09:23)
[2017-04-10] MEDS: SENNOSIDES 8.6 MG TAB PO PRN (09:23)
[2017-04-10] MEDS: DOCUSATE SODIUM 50 MG/SENNA 8.6 MG TAB PO SCH ×2 (09:23→20:20)
[2017-04-10] MEDS: FUROSEMIDE 40 MG TAB PO SCH (09:23)
--- NOTE | 2017-04-10 10:23 | HHI.FPPN ---
Subjective Remarks Patient seen and examined this morning. No acute events overnight per report. Patient with asymptomatic hypotension while sleeping overnight. Patient currently requiring 3L NC, which she reports is her baseline at home due to likely her COPD. Currently she is without complaints and desires to be discharged home. We thoroughly discussed the need for rehab to which she agreed. She reports she was able to walk in her room yesterday and sit up in the chair with mild pain. Otherwise she has no complaints and denies any fevers , chills, SOB, chest pain, NVD, ABD pain, or calf tenderness. (Fredy Main MD R2) Objective Vitals Vital Signs Date Time Temp Pulse Resp B/P (MAP) Pulse Ox O2 Delivery O2 Flow Rate FiO2 04/10/17 09:28 Nasal Cannula 3.00 04/10/17 07:44 95 Nasal Cannula 3.00 04/10/17 04:25 98.6 109 22 98/59 (72) 94 04/10/17 00:20 99.7 107 22 95/59 (71) 98 04/09/17 20:10 98.8 58 20 121/69 (86) 97 04/09/17 20:00 97 Nasal Cannula 3.00 04/09/17 19:48 98 Nasal Cannula 3.00 04/09/17 17:27 100 04/09/17 17:21 Nasal Cannula 3.00 04/09/17 17:21 95.5 99 16 109/52 (71) 04/09/17 16:00 96.5 99 16 109/52 (71) 100 04/09/17 12:00 96.1 88 16 117/56 (76) 96 04/09/17 11:46 98.1 88 19 95/57 98 04/09/17 11:45 89 18 92/55 (67) 98 Nasal Cannula 4 04/09/17 11:05 97.8 91 19 94/55 98 04/09/17 10:47 98.1 91 21 102/51 95 04/09/17 10:15 92 18 104/57 (73) 93 Nasal Cannula 4 I/O 04/09/17 04/09/17 04/09/17 04/10/17 04/10/17 04/10/17 07:00 15:00 23:00 07:00 15:00 23:00 Intake Total 250 ml 1800 ml 580 ml 1338 ml Output Total 100 ml 1000 ml 300 ml Balance 250 ml 1700 ml -420 ml 1038 ml Intake Oral 0 ml 480 ml 120 ml IV Total 250 ml 1000 ml 100 ml 1218 ml Packed Cells 800 ml Output Urine Total 1000 ml 300 ml Estimated Blood Loss 100 ml # Voids 4 # Bowel Movements 0 0 0 (Fredy Main MD R2) Result Diagram: 04/10/1745404/10/17454 Objective Remarks GENERAL: Well-nourished, well-developed elderly female lying in bed in no acute distress. SKIN: Warm and dry. No rash appreciated. Left elbow: Distal left elbow with large skin tear covered with blood stained Tegaderm. Moderate sized hematoma developing around the lesion. Sensation, strength, and range of motion all intact. HEENT: Atraumatic, normocephalic with EOMI. No rhinorrhea. MMM. No visible JVD or LAD. CARDIOVASCULAR: Regular rate and rhythm with 2/6 systolic ejection murmur. 2+ pulses in all four extremities. RESPIRATORY: Coarse breath sounds throughout both lung dougherty. Diffuse expiratory wheezes. Poor inspiratory overall. No increased work of breathing at this time. Left anterior port in place. GASTROINTESTINAL: Abdomen non-tender with positive bowel sounds. ABD taut with mild distension. Reducible ABD wall hernia of midline LLQ. No masses appreciated. MUSCULOSKELETAL: No cyanosis or edema. No RLE calf tenderness. LLE: Wrapped in Fred wrap and in a leg immobilizer, CDI. She is able to move her toes and sensation is intact into her foot. Normal capillary refill. 2+ DP/ PT pulses. L hip incision site covered with sterile bandage, CDI. No surrounding erythema or warmth appreciated. NEURO/PSYCH: Afocal. Oriented to PPT, but unable to provide complete PMHx. Normal speech and judgement. (Fredy Main MD R2) A/P Assessment and Plan Mrs. Rodriguez is a 81-year-old female presenting with left femoral neck fracture after fall found to have community acquired pneumonia. Discharge Planning Pending Orthopedic clearance Patient will require PT at Rehab (Fredy Main MD R2) Attending Attestation Patient examined and case discussed with resident physician I have read the above note and agree with the assessment/plan as discussed with me I was involved in all medical decision making for this patient Steve Pinzon MD (Steve Pinzon MD) Problem List: (1) Left displaced femoral neck fracture ICD Codes: S72.002A - Fracture of unspecified part of neck of left femur, initial encounter for closed fracture Status: Acute Plan: Status post left hip hemiarthroplasty by Dr. Gordon of orthopedics 04/09/17 -Postoperative management per orthopedic surgery -Physical therapy ordered to evaluate patient, recommend PT at rehab -Weight-bear as tolerated per orthopedic note following posterior total hip precautions including the use of the Canvas knee splint -DVT prophylaxis with SCDs and ZENOBIA hose as well as Lovenox Pain control with [place] 1-2 tablets as needed based on pain scale and morphine for breakthrough pain Patient placed on a bowel regimen Ice packs to affected area (2) Community acquired bacterial pneumonia ICD Codes: J15.9 - Unspecified bacterial pneumonia Status: Acute Plan: Chest x-ray indicative of a consolidation in the right lung base concerning for pneumonia -May have played a role in her weakness and fall Antibiotics as below: -Azithromycin 500 mg PO every 24 hours x 5 days. -Rocephin 1 g IV every 24 hours for duration of hospitalization. Duonebs and albuterol every 4 hours when necessary for shortness of breath/ wheezing Supplemental O2 and pulse ox monitoring. Acapella, incentive spirometer. Tylenol, Tessalon available as PRNs. (3) Anemia ICD Codes: D64.9 - Anemia, unspecified Plan: Received 2 units PRBCs due to anemia postoperatively -H/H 04/10: 8.2/24.5 -Repeat 04/10 @1300: Ordered -Plan to transfuse with hemoglobin <7 (No reported ACS history) (4) COPD (chronic obstructive pulmonary disease) ICD Codes: J44.9 - Chronic obstructive pulmonary disease, unspecified Status: Chronic Plan: -Breathing treatments as above -Spriva daily in place of utibron inhaler -Incentive spirometer, acapella, respiratory cpt (5) Ascitic fluid ICD Codes: R18.8 - Other ascites Status: Acute Plan: Patient with appointment on 04/12/17, for ascitic fluid drainage -We will contact her PCP on Tuesday to identify the source of ascites -Consider ultrasound-guided paracentesis prior to discharge if warranted -Deferred due to decreased H/H and platelet count (6) Tremor ICD Codes: R25.1 - Tremor, unspecified Status: Chronic Plan: -Continue ropinirole (7) Diabetes mellitus ICD Codes: E11.9 - Type 2 diabetes mellitus without complications Status: Chronic Plan: -Hold home metformin -Continue gabapentin and pravastatin -Sliding scale insulin per protocol (8) HTN (hypertension) ICD Codes: I10 - Essential (primary) hypertension Status: Chronic Plan: -Continue Lasix, lisinopril, and verapamil (9) Nutrition, metabolism, and development symptoms ICD Codes: R63.8 - Other symptoms and signs concerning food and fluid intake Status: Acute Plan: -Diet: Nothing by mouth after midnight for possible procedure in a.m. -Fluids: Patient tolerating fluids currently by mouth -Electrolytes: Within normal limits, continue to monitor (10) No contraindication to deep vein thrombosis (DVT) prophylaxis ICD Codes: Z78.9 - Other specified health status Status: Acute Plan: -Restart pharmacological DVT prophylaxis with daily Lovenox -SCDs to unaffected leg (Fredy Main MD R2) Problem Qualifiers (1) Anemia: Qualified Codes: D64.9 - Anemia, unspecified (2) Ascitic fluid: Qualified Codes: R18.8 - Other ascites Fredy Main MD R2 Apr 10, 2017 10:23 Steve Pinzon MD Apr 10, 2017 10:35
--- NOTE | 2017-04-10 10:56 | PD.ORT.PN ---
Subjective Post Op Day #: 1 Subjective Remarks The patient is resting in bed in NAD. Family at bedside. Mild pain to the left hip. Objective Vitals Vital Signs Date Time Temp Pulse Resp B/P (MAP) Pulse Ox O2 Delivery O2 Flow Rate FiO2 04/10/17 09:28 Nasal Cannula 3.00 04/10/17 07:44 95 Nasal Cannula 3.00 04/10/17 04:25 98.6 109 22 98/59 (72) 94 04/10/17 00:20 99.7 107 22 95/59 (71) 98 04/09/17 20:10 98.8 58 20 121/69 (86) 97 04/09/17 20:00 97 Nasal Cannula 3.00 04/09/17 19:48 98 Nasal Cannula 3.00 04/09/17 17:27 100 04/09/17 17:21 Nasal Cannula 3.00 04/09/17 17:21 95.5 99 16 109/52 (71) 04/09/17 16:00 96.5 99 16 109/52 (71) 100 04/09/17 12:00 96.1 88 16 117/56 (76) 96 04/09/17 11:46 98.1 88 19 95/57 98 04/09/17 11:45 89 18 92/55 (67) 98 Nasal Cannula 4 04/09/17 11:05 97.8 91 19 94/55 98 I/O 04/09/17 04/09/17 04/09/17 04/10/17 04/10/17 04/10/17 06:59 14:59 22:59 06:59 14:59 22:59 Intake Total 250 ml 1800 ml 580 ml 1338 ml Output Total 100 ml 1000 ml 300 ml Balance 250 ml 1700 ml -420 ml 1038 ml Intake Oral 0 ml 480 ml 120 ml IV Total 250 ml 1000 ml 100 ml 1218 ml Packed Cells 800 ml Output Urine Total 1000 ml 300 ml Estimated Blood Loss 100 ml # Voids 4 # Bowel Movements 0 0 0 Result Diagram: 04/10/17 0455 04/10/17 0455 Procedures Left hip hemiarthroplasty Objective Remarks Dressing is C/D/I. EHL/TA/G intact. 2+ pedal pulse. Calf is soft and nontender. + SILT. CKS in place. Ecchymosis to the left hip with mild swelling. Assessment & Plan Ortho Post Op Day #: 1 Problem List: Assessment and Plan POD #1: Left hip hemiarthroplasty 1. WBAT LLE 2. Lovenox followed by ASA for DVT prophylaxis 3. Ice to the left hip PRN 4. Continue with posterior hip precautions 5. Anticipatory discharge to SNF on Tuesday (likely [facility]) 6. F/U with Dr. Gordon or [facility] in 1-2 weeks. Zac Rose Apr 10, 2017 10:56
[2017-04-10] MEDS ORDERED: SODIUM CHLORID 0.9% 500 ML INJ 500 ML IV ONE (14:00)
[2017-04-10] MEDS ORDERED: Vancomycin Consult Pharmacy 1 EA OTHER SCH (14:15)
--- NOTE | 2017-04-10 14:31 | HHI.PR ---
Addendum to Inpatient Note Addendum Reason: Additional Documentation Additional Information S: Medical Team notified by nursing staff for concern for possible infection. Patient currently without complication sitting up in chair with her at the bedside. She denies any new fevers, chills, shortness of breath, chest pain , NVD, abdominal pain, or calf tenderness. O: VITALS: 98.6, 106, 93/55, 90% on 3L, RR 19 GENERAL: Well-nourished, well-developed elderly female sitting up in recliner in NAD. is at the bedside. SKIN: Warm and dry. No rash appreciated. Left elbow: Distal left elbow with large skin tear covered with blood stained Tegaderm. Moderate sized hematoma developing around the lesion. Sensation, strength, and range of motion all intact. HEENT: Atraumatic, normocephalic with EOMI. No rhinorrhea. MMM. No visible JVD or LAD. CARDIOVASCULAR: Regular rate and rhythm with 2/6 systolic ejection murmur. 2+ pulses in all four extremities. RESPIRATORY: Coarse breath sounds throughout both lung dougherty. Diffuse expiratory wheezes. Poor inspiratory overall. No increased work of breathing at this time. Left anterior port in place. GASTROINTESTINAL: Abdomen non-tender with positive bowel sounds. ABD taut with mild distension. Reducible ABD wall hernia of midline LLQ. No masses appreciated. MUSCULOSKELETAL: No cyanosis or edema. No RLE calf tenderness. LLE: Wrapped in Fred wrap with leg immobilizer removed, CDI. She is able to move her toes and sensation is intact into her foot. Normal capillary refill. 2 + DP/PT pulses. L hip incision site covered with sterile bandage, CDI. No surrounding erythema or warmth appreciated. NEURO/PSYCH: Afocal. Oriented to PPT, but unable to provide complete PMHx. Normal speech and judgement. A/P: Mrs. Rodriguez is a 81-year-old female presenting with left femoral neck fracture after fall found to have community acquired pneumonia. 1. Sepsis -Patient currently meets sepsis criteria with tachycardia, WBC of 21, and BP of 93/55. Sources of infection include CAP, UTI, and post-op compilations. -WBC elevated to 21 this morning, however patient has been treated for her CAP and UTI with Ceftriaxone and Azithromycin since admission without fever. Reaction could possibly be related to hip fracture as well as being transfused 2 units PRBC on 04/09/17. -STAT CBC, BMP, blood cultures x2, and lactic acid ordered -Due to her susceptible prosthetic hip, Vancomycin and Zosyn ordered -500ml NS bolus given for hypotension with tachycardia, further boluses per lactic acid protocol -Transfuse for hgb <7. Fredy Main MD R2 Apr 10, 2017 14:31
[2017-04-10] MEDS ORDERED: COMMODE 3-IN-11 MIS (14:57)
[2017-04-10] MEDS ORDERED: WALKER WHEELS/F1 MIS (14:57)
[2017-04-10] MEDS ORDERED: VANCOMYCIN INJ 1,000 MG in SODIUM CHLOR 0.9% 250 ML INJ 250 ML IV SCH (16:00)
[2017-04-10] MEDS: PIPERACIL-TAZO 3.375 GM PREMIX 50 ML IV SCH ×2 (17:08→22:07)
[2017-04-10 18:01] LABS: AUTOMATED NEUTROPHIL # 11.9 TH/MM3 (1.8-7.7); BASOPHIL % 0.1 % (0.0-2.0); EOSINOPHIL % 0.2 % (0.0-4.0); HEMATOCRIT 26.6 % (35.0-46.0); HEMOGLOBIN 8.8 GM/DL (11.6-15.3); LYMPH % 5.7 % (9.0-44.0); LYMPHOCYTE # 0.9 TH/MM3 (1.0-4.8); MEAN CELL VOLUME 83.7 FL (80.0-100.0); MEAN CORPUSCULAR HEMOGLOBIN 27.7 PG (27.0-34.0); MEAN CORPUSCULAR HGB CONC 33.1 % (32.0-36.0); MEAN PLATELET VOLUME 11.1 FL (7.0-11.0); MONO % 18.7 % (0.0-8.0); NEUT % 75.3 % (16.0-70.0); PLATELET COUNT 59 TH/MM3 (150-450); RED BLOOD COUNT 3.18 MIL/MM3 (4.00-5.30); RED CELL DISTRIBUTION WIDTH 17.7 % (11.6-17.2); WHITE BLOOD COUNT 15.9 TH/MM3 (4.0-11.0)
[2017-04-10 18:05] LABS: BICARBONATE 25.2 MEQ/L (21.0-32.0); CALCIUM 7.8 MG/DL (8.5-10.1); CREATININE 1.19 MG/DL (0.50-1.00)
[2017-04-10 18:07] LABS: LACTIC ACID SEPSIS PROTOCOL 2.9 mmol/L (0.4-2.0)
[2017-04-10 18:31] LABS: BANDS 4 % (0-6); KERATOCYTES OCC (NORMAL); LYMPHOCYTES 8 % (9-44); MONOCYTES 7 % (0-8); NEUTROPHIL # MANUAL DIFF 13.4 TH/MM3 (1.8-7.7); OVALOCYTES 2+ (NORMAL); POLYS (SEG NEUTROPHILS) 80 % (16-70)
[2017-04-10 18:32] LABS: BURR CELLS 1+ (NORMAL)
[2017-04-10] MEDS ORDERED: SODIUM CHLOR 0.9% 1000 ML INJ 1,000 ML IV ONE (18:45)
[2017-04-10] MEDS ORDERED: VANCOMYCIN 1 GM/200 ML PREMIX IV SCH (20:00)
[2017-04-10] MEDS: MULTIVITAMINS/MINERALS THERAPEUTIC TAB PO SCH (20:20)
[2017-04-10] MEDS ORDERED: DOCUSATE SODIUM 100 MG CAP PO SCH (21:00)
[2017-04-11] VITALS (9 sets, daily range): BP systolic 94–116; BP diastolic 49–65; PULSE 92–104; RESP 15–19; TEMP 96.7–99.8; O2SAT 95–99
[2017-04-11] MEDS: RESP: ALBUTEROL 2.5 MG/IPRATROPIUM 0.5 MG NEB (SCH) NEB ×6 (00:03→20:57)
[2017-04-11] MEDS: PIPERACIL-TAZO 3.375 GM PREMIX 50 ML IV SCH ×4 (03:54→20:39)
[2017-04-11 06:54] LABS: HEMATOCRIT 23.4 % (35.0-46.0); HEMOGLOBIN 7.8 GM/DL (11.6-15.3); MEAN CELL VOLUME 83.2 FL (80.0-100.0); MEAN CORPUSCULAR HEMOGLOBIN 27.9 PG (27.0-34.0); MEAN CORPUSCULAR HGB CONC 33.5 % (32.0-36.0); MEAN PLATELET VOLUME 10.7 FL (7.0-11.0); PLATELET COUNT 58 TH/MM3 (150-450); RED BLOOD COUNT 2.81 MIL/MM3 (4.00-5.30); RED CELL DISTRIBUTION WIDTH 17.3 % (11.6-17.2); WHITE BLOOD COUNT 12.1 TH/MM3 (4.0-11.0)
[2017-04-11 07:34] LABS: ALBUMIN 2.3 GM/DL (3.4-5.0); BICARBONATE 24.8 MEQ/L (21.0-32.0); CALCIUM 6.4 MG/DL (8.5-10.1); CALCIUM-PROTEIN CORRECTED 7.7 MG/DL (8.5-10.1); CREATININE 0.96 MG/DL (0.50-1.00); TOTAL BILIRUBIN ADULT 0.7 MG/DL (0.2-1.0); TOTAL PROTEIN 4.5 GM/DL (6.4-8.2)
[2017-04-11] MEDS: INSULIN ASPART SUPPLEMENTAL SCALE SQ SCH ×4 (08:00→20:30)
[2017-04-11 08:15] LABS: BANDS 6 % (0-6); LYMPHOCYTES 7 % (9-44); METAMYELOCYTES 1 % (0-1); MONOCYTES 2 % (0-8); NEUTROPHIL # MANUAL DIFF 10.8 TH/MM3 (1.8-7.7); POLYS (SEG NEUTROPHILS) 82 % (16-70)
[2017-04-11 08:16] LABS: ACANTHOCYTES OCC (NORMAL); KERATOCYTES OCC (NORMAL); OVALOCYTES 1+ (NORMAL)
[2017-04-11] MEDS: SODIUM CHLOR 0.9% 1000 ML INJ 1,000 ML IV SCH ×4 (08:50→20:30)
[2017-04-11] MEDS: ENOXAPARIN SODIUM 40 MG/0.4 ML SYRINGE SQ SCH (08:52)
[2017-04-11] MEDS: MULTIVITAMINS/MINERALS THERAPEUTIC TAB PO SCH ×2 (08:53→20:29)
[2017-04-11] MEDS: FUROSEMIDE 40 MG TAB PO SCH (08:53)
[2017-04-11] MEDS: MAGNESIUM HYDROXIDE SUSP 30 ML CUP PO PRN ×2 (08:53→20:29)
[2017-04-11] MEDS: PANTOPRAZOLE SOD 40 MG DELAYED RELEASE TAB PO SCH (08:54)
[2017-04-11] MEDS: SENNOSIDES 8.6 MG TAB PO PRN (08:54)
[2017-04-11] MEDS: DOCUSATE SODIUM 50 MG/SENNA 8.6 MG TAB PO SCH ×2 (08:54→20:29)
[2017-04-11] MEDS: PRAVASTATIN SOD 10 MG TAB PO SCH (08:54)
[2017-04-11] MEDS: TIOTROPIUM BROMIDE 18 MCG INH INH SCH (08:55)
[2017-04-11] MEDS: GABAPENTIN 300 MG CAP PO SCH ×3 (08:55→16:24)
[2017-04-11] MEDS: SODIUM CHLORIDE 0.9% FLUSH 10 ML FLUSH IV FLUSH SCH ×2 (08:55→20:30)
[2017-04-11] MEDS: TOLTERODINE TARTRATE 4 MG CAP LA PO SCH (08:55)
[2017-04-11] MEDS: LISINOPRIL 10 MG TAB PO SCH ×2 (08:56→20:30)
[2017-04-11] MEDS: VERAPAMIL HCL 80 MG TAB PO SCH (08:57)
[2017-04-11] MEDS: BENZONATATE 100 MG CAP PO PRN (09:01)
[2017-04-11] MEDS: ACETAMINOPHEN/HYDROcodone 325 MG/5 MG TAB PO PRN ×3 (09:03→16:24)
--- NOTE | 2017-04-11 10:01 | HHI.FPPN ---
Subjective Remarks Patient seen and examined this morning. No acute events overnight per nursing report. Patient states she is doing well overall this morning, however does seem less oriented with increased work of breathing compared to prior encounters. She currently has no complaints and states that she is "ready to go home." She denies nay fevers, chills, chest pain, NVD, ABD pain, hip pain, or calf tenderness. She does endorse mild SOB, but attributes that to her COPD for which she uses as needed oxygen at home. Objective Vitals Vital Signs Date Time Temp Pulse Resp B/P (MAP) Pulse Ox O2 Delivery O2 Flow Rate FiO2 04/11/17 09:05 Nasal Cannula 3.00 04/11/17 09:04 Nasal Cannula 3.00 04/11/17 08:13 99.1 100 17 94/54 (67) 98 04/11/17 04:00 97.7 104 15 96/51 (66) 99 04/11/17 00:03 97 Nasal Cannula 3.00 04/11/17 00:00 97.6 102 15 94/56 (69) 95 04/10/17 20:00 98.1 96 15 104/55 (71) 97 04/10/17 19:31 Nasal Cannula 3.00 04/10/17 19:12 Nasal Cannula 3.00 04/10/17 18:22 95.9 101 23 104/52 (69) 96 04/10/17 15:59 90 Nasal Cannula 3.00 04/10/17 11:39 98.6 106 16 93/55 (68) 90 I/O 04/10/17 04/10/17 04/10/17 04/11/17 04/11/17 04/11/17 07:00 15:00 23:00 07:00 15:00 23:00 Intake Total 1338 ml 3060 ml 400 ml Output Total 300 ml Balance 1038 ml 3060 ml 400 ml Intake Oral 120 ml 980 ml 400 ml IV Total 1218 ml 1500 ml Other 580 ml Output Urine Total 300 ml # Voids 2 2 # Bowel Movements 0 Result Diagram: 04/11/17 0630 04/11/17 0630 Objective Remarks GENERAL: Well-nourished, well-developed elderly female lying in bed in no acute distress. SKIN: Warm and dry. No rash appreciated. Left elbow: Distal left elbow with large skin tear covered with blood stained Tegaderm. Moderate sized hematoma developing around the lesion. Sensation, strength, and range of motion all intact. HEENT: Atraumatic, normocephalic with EOMI. No rhinorrhea. MMM. No visible JVD or LAD. CARDIOVASCULAR: Regular rate and rhythm with 2/6 systolic ejection murmur. 2+ pulses in all four extremities. RESPIRATORY: Coarse breath sounds throughout both lung dougherty. Diffuse expiratory wheezes. Poor inspiratory overall. No increased work of breathing at this time. Left anterior port in place. GASTROINTESTINAL: Abdomen non-tender with positive bowel sounds. ABD taut with mild distension. Reducible ABD wall hernia of midline LLQ. No masses appreciated. MUSCULOSKELETAL: No cyanosis or edema. No RLE calf tenderness. LLE: Leg in immobilizer, CDI. She is able to move her toes and sensation is intact into her foot. Normal capillary refill. 2+ DP/PT pulses. L hip incision site covered with sterile bandage, CDI. Surrounding hematoma improved from prior evaluations without erythema or warmth appreciated. NEURO/PSYCH: Afocal. Oriented to only person which is a change from her initial encounters.. Normal speech and judgement. A/P Assessment and Plan Mrs. Rodriguez is a 81-year-old female presenting with left femoral neck fracture after fall found to have community acquired pneumonia. Discharge Planning Pending improvement of respiratory status Patient will require PT at Rehab Problem List: (1) Left displaced femoral neck fracture ICD Codes: S72.002A - Fracture of unspecified part of neck of left femur, initial encounter for closed fracture Status: Acute Plan: Status post left hip hemiarthroplasty by Dr. Gordon of orthopedics 04/09/17 -Postoperative management per orthopedic surgery -Cleared for discharge -Physical therapy ordered to evaluate patient, recommend PT at rehab -Weight-bear as tolerated per orthopedic note following posterior total hip precautions including the use of the [place]vas knee splint -DVT prophylaxis with SCDs and ZENOBIA hose as well as Lovenox Pain control with [place] 1-2 tablets as needed based on pain scale and morphine for breakthrough pain Patient placed on a bowel regimen Ice packs to affected area (2) Community acquired bacterial pneumonia ICD Codes: J15.9 - Unspecified bacterial pneumonia Status: Acute Plan: Chest x-ray indicative of a consolidation in the right lung base concerning for pneumonia -May have played a role in her weakness and fall -Patient met sepsis criteria on 04/10 with tachycardia, WBC of 21, and BP of 93/ 55. Sources of infection include CAP, UTI, and post-op compilations. WBC elevated to 21 , however patient had been treated for her CAP and UTI with Ceftriaxone and Azithromycin since admission without fever. Antibiotics as below: -Vancomycin and Zosyn started on 04/10 -Azithromycin and Rocephin 04/08-04/10 Duonebs and albuterol every 4 hours when necessary for shortness of breath/ wheezing Supplemental O2 and pulse ox monitoring. Acapella, incentive spirometer. Tylenol, Tessalon available as PRNs. (3) Urinary tract infection ICD Codes: N39.0 - Urinary tract infection, site not specified Plan: -UC from admission with Group D Enterococcus >100,000cfu, sensitivities to follow -May have played a role in her weakness and fall -Patient met sepsis criteria on 04/10 with tachycardia, WBC of 21, and BP of 93/ 55. Sources of infection include CAP, UTI, and post-op compilations. WBC elevated to 21 , however patient had been treated for her CAP and UTI with Ceftriaxone and Azithromycin since admission without fever. Antibiotics as below: -Vancomycin and Zosyn started on 04/10 -Azithromycin and Rocephin 04/08-04/10 (4) Anemia ICD Codes: D64.9 - Anemia, unspecified Plan: Received 2 units PRBCs due to anemia postoperatively -H/H 04/10: 7.8/23.4 -Repeat 04/11 @1300: Ordered -Plan to transfuse with hemoglobin <7 (No reported ACS history) (5) COPD (chronic obstructive pulmonary disease) ICD Codes: J44.9 - Chronic obstructive pulmonary disease, unspecified Status: Chronic Plan: -Breathing treatments as above -Spriva daily in place of utibron inhaler -Incentive spirometer, acapella, respiratory cpt (6) Ascitic fluid ICD Codes: R18.8 - Other ascites Status: Acute Plan: Patient with appointment on 04/12/17, for ascitic fluid drainage -We will contact her PCP on Tuesday to identify the source of ascites -Consider ultrasound-guided paracentesis prior to discharge if warranted -Deferred due to decreased H/H and platelet count (7) Tremor ICD Codes: R25.1 - Tremor, unspecified Status: Chronic Plan: -Continue ropinirole (8) Diabetes mellitus ICD Codes: E11.9 - Type 2 diabetes mellitus without complications Status: Chronic Plan: -Hold home metformin -Continue gabapentin and pravastatin -Sliding scale insulin per protocol (9) HTN (hypertension) ICD Codes: I10 - Essential (primary) hypertension Status: Chronic Plan: -Continue Lasix, lisinopril, and verapamil (10) Nutrition, metabolism, and development symptoms ICD Codes: R63.8 - Other symptoms and signs concerning food and fluid intake Status: Acute Plan: -Diet: Nothing by mouth after midnight for possible procedure in a.m. -Fluids: Patient tolerating fluids currently by mouth -Electrolytes: Within normal limits, continue to monitor (11) No contraindication to deep vein thrombosis (DVT) prophylaxis ICD Codes: Z78.9 - Other specified health status Status: Acute Plan: -Restart pharmacological DVT prophylaxis with daily Lovenox -SCDs to unaffected leg Problem Qualifiers (1) Anemia: Qualified Codes: D64.9 - Anemia, unspecified (2) Ascitic fluid: Qualified Codes: R18.8 - Other ascites Fredy Main MD R2 Apr 11, 2017 10:00
--- NOTE | 2017-04-11 12:27 | PD.ORT.PN ---
Subjective Subjective Remarks The patient is resting in bed in NAD. Family at bedside. Mild pain to the left hip. Mild difficulty breathing. Patient on O2 NC. Objective Vitals Vital Signs Date Time Temp Pulse Resp B/P (MAP) Pulse Ox O2 Delivery O2 Flow Rate FiO2 04/11/17 12:00 99.8 101 19 108/65 (79) 95 04/11/17 09:05 Nasal Cannula 3.00 04/11/17 09:04 Nasal Cannula 3.00 04/11/17 08:13 99.1 100 17 94/54 (67) 98 04/11/17 04:00 97.7 104 15 96/51 (66) 99 04/11/17 00:03 97 Nasal Cannula 3.00 04/11/17 00:00 97.6 102 15 94/56 (69) 95 04/10/17 20:00 98.1 96 15 104/55 (71) 97 04/10/17 19:31 Nasal Cannula 3.00 04/10/17 19:12 Nasal Cannula 3.00 04/10/17 18:22 95.9 101 23 104/52 (69) 96 04/10/17 15:59 90 Nasal Cannula 3.00 I/O 04/10/17 04/10/17 04/10/17 04/11/17 04/11/17 04/11/17 07:00 15:00 23:00 07:00 15:00 23:00 Intake Total 1338 ml 3060 ml 400 ml Output Total 300 ml Balance 1038 ml 3060 ml 400 ml Intake Oral 120 ml 980 ml 400 ml IV Total 1218 ml 1500 ml Other 580 ml Output Urine Total 300 ml # Voids 2 2 # Bowel Movements 0 Result Diagram: 04/11/17 0630 04/11/17 0630 Procedures Left hip hemiarthroplasty Objective Remarks Dressing is C/D/I. EHL/TA/G intact. 2+ pedal pulse. Calf is soft and nontender. + SILT. CKS in place. Ecchymosis to the left hip with mild swelling. Assessment & Plan Ortho Post Op Day #: 2 Problem List: Assessment and Plan POD #2: Left hip hemiarthroplasty 1. WBAT LLE 2. Lovenox followed by ASA for DVT prophylaxis 3. Ice to the left hip PRN 4. Continue with posterior hip precautions 5. Anticipatory discharge to SNF on Tuesday (likely [facility]) 6. F/U with Dr. Gordon or [facility] in 1-2 weeks. 7. Anemia (HGB 7.8). Medical aware. Order to repeat H&H at 1300 and transfuse if HGB is less than 7. Zac Rose Apr 11, 2017 12:27
[2017-04-11] MEDS: FLUCONAZOLE 200 MG TAB PO SCH (16:24)
[2017-04-11] MEDS: VANCOMYCIN INJ 1,250 MG in SODIUM CHLOR 0.9% 250 ML INJ 250 ML IV SCH (16:30)
[2017-04-11 16:46] LABS: HEMATOCRIT 24.4 % (35.0-46.0); HEMOGLOBIN 8.1 GM/DL (11.6-15.3)
[2017-04-11] MEDS: CALCIUM CARBONATE 500 MG CHEWABLE TAB CHEW SCH (20:29)
[2017-04-12] VITALS (7 sets, daily range): BP systolic 98–108; BP diastolic 42–61; PULSE 80–94; RESP 17; TEMP 97.1–98.2; O2SAT 90–98
[2017-04-12] MEDS: PIPERACIL-TAZO 3.375 GM PREMIX 50 ML IV SCH ×4 (03:40→21:37)
[2017-04-12] MEDS: RESP: ALBUTEROL 2.5 MG/IPRATROPIUM 0.5 MG NEB (SCH) NEB ×6 (04:35→20:38)
[2017-04-12] MEDS: SODIUM CHLOR 0.9% 1000 ML INJ 1,000 ML IV SCH ×3 (07:30→21:40)
[2017-04-12 07:59] LABS: HEMATOCRIT 24.6 % (35.0-46.0); HEMOGLOBIN 8.2 GM/DL (11.6-15.3); MEAN CELL VOLUME 85.2 FL (80.0-100.0); MEAN CORPUSCULAR HEMOGLOBIN 28.4 PG (27.0-34.0); MEAN CORPUSCULAR HGB CONC 33.3 % (32.0-36.0); MEAN PLATELET VOLUME 11.5 FL (7.0-11.0); PLATELET COUNT 61 TH/MM3 (150-450); RED BLOOD COUNT 2.88 MIL/MM3 (4.00-5.30); RED CELL DISTRIBUTION WIDTH 17.8 % (11.6-17.2); WHITE BLOOD COUNT 8.6 TH/MM3 (4.0-11.0)
[2017-04-12] MEDS: INSULIN ASPART SUPPLEMENTAL SCALE SQ SCH ×4 (08:00→21:00)
[2017-04-12 08:20] LABS: ALBUMIN 2.4 GM/DL (3.4-5.0); ALKALINE PHOSPHATASE 82 U/L (45-117); ALT (GPT) 10 U/L (10-53); AST (GOT) 24 U/L (15-37); BICARBONATE 24.8 MEQ/L (21.0-32.0); BLOOD UREA NITROGEN 27 MG/DL (7-18); CHLORIDE 110 MEQ/L (98-107); CREATININE 1.02 MG/DL (0.50-1.00); GLOMERULAR FILTRATION RATE 52 ML/MIN (>89); GLUCOSE,RANDOM 123 MG/DL (74-106); SODIUM (NA) 140 MEQ/L (136-145); TOTAL BILIRUBIN ADULT 0.6 MG/DL (0.2-1.0); TOTAL PROTEIN 4.7 GM/DL (6.4-8.2)
[2017-04-12] MEDS: CALCIUM CARBONATE 500 MG CHEWABLE TAB CHEW SCH ×2 (08:48→21:36)
[2017-04-12] MEDS: ENOXAPARIN SODIUM 40 MG/0.4 ML SYRINGE SQ SCH (08:48)
[2017-04-12] MEDS: FLUCONAZOLE 200 MG TAB PO SCH (08:49)
[2017-04-12] MEDS: VERAPAMIL HCL 80 MG TAB PO SCH (08:49)
[2017-04-12] MEDS: LISINOPRIL 10 MG TAB PO SCH ×2 (08:49→21:00)
[2017-04-12] MEDS: PRAVASTATIN SOD 10 MG TAB PO SCH (08:49)
[2017-04-12] MEDS: DOCUSATE SODIUM 50 MG/SENNA 8.6 MG TAB PO SCH ×2 (08:49→21:35)
[2017-04-12] MEDS: GABAPENTIN 300 MG CAP PO SCH ×3 (08:49→18:03)
[2017-04-12] MEDS: FUROSEMIDE 40 MG TAB PO SCH (08:49)
[2017-04-12] MEDS: TOLTERODINE TARTRATE 4 MG CAP LA PO SCH (08:49)
[2017-04-12] MEDS: MULTIVITAMINS/MINERALS THERAPEUTIC TAB PO SCH ×2 (08:49→21:36)
[2017-04-12] MEDS: PANTOPRAZOLE SOD 40 MG DELAYED RELEASE TAB PO SCH (08:49)
[2017-04-12] MEDS: SODIUM CHLORIDE 0.9% FLUSH 10 ML FLUSH IV FLUSH SCH ×2 (08:50→21:00)
[2017-04-12] MEDS: TIOTROPIUM BROMIDE 18 MCG INH INH SCH (08:50)
[2017-04-12] MEDS: BISACODYL 10 MG SUPP RECTAL PRN (08:52)
[2017-04-12 08:55] LABS: BANDS 12 % (0-6); KERATOCYTES 1+ (NORMAL); LYMPHOCYTES 2 % (9-44); METAMYELOCYTES 1 % (0-1); MONOCYTES 6 % (0-8); NEUTROPHIL # MANUAL DIFF 7.9 TH/MM3 (1.8-7.7); POLYS (SEG NEUTROPHILS) 79 % (16-70); SICKLE CELLS 1+ (NORMAL)
[2017-04-12 08:56] LABS: OVALOCYTES 2+ (NORMAL)
[2017-04-12] MEDS ORDERED: FUROSEMIDE 40 MG/4 ML VIAL IV PUSH ONE (09:30)
--- NOTE | 2017-04-12 09:38 | HHI.FPPN ---
Subjective Remarks No acute events overnight. Pt lying in bed this AM, on 3L NC. Nurse reports that she sounds "congested & wet" this morning. Patient complains of coughing this AM. She states that she unable to cough anything up but feels congested. She starting having this cough when she was admitted and worsening overnight. She has not had a BM since admission. She has no other complaints. She denies fever, CP, abdominal pain, and N/V. (Agnes Ibanez MD R1) Objective Vitals Vital Signs Date Time Temp Pulse Resp B/P (MAP) Pulse Ox O2 Delivery O2 Flow Rate FiO2 04/12/17 08:00 97.1 91 17 103/61 (75) 95 04/12/17 07:59 98 Nasal Cannula 3.00 04/11/17 23:15 96.7 92 18 109/57 (74) 96 04/11/17 20:59 96 Nasal Cannula 3.00 04/11/17 20:30 99 Nasal Cannula 3.00 04/11/17 20:20 97.8 96 18 116/65 (82) 99 04/11/17 16:38 98.1 103 19 95/49 (64) 97 04/11/17 12:00 99.8 101 19 108/65 (79) 95 I/O 04/11/17 04/11/17 04/11/17 04/12/17 04/12/17 04/12/17 07:00 15:00 23:00 07:00 15:00 23:00 Intake Total 400 ml 3422 ml 2160 ml 1230 ml Output Total 225 ml Balance 400 ml 3422 ml 1935 ml 1230 ml Intake Oral 400 ml 1110 ml 480 ml IV Total 3422 ml 1050 ml 750 ml Output Urine Total 225 ml # Voids 2 1 3 2 # Bowel Movements 0 0 (Agnes Ibanez MD R1) Result Diagram: 04/12/172 04/12/17 045 Objective Remarks GENERAL: Well-nourished, well-developed elderly female lying in bed in no acute distress. SKIN: Warm and dry. No rash appreciated. Left elbow: Distal left elbow with large skin tear covered with blood stained Tegaderm. Moderate sized hematoma developing around the lesion. Sensation, strength, and range of motion all intact. HEENT: Atraumatic, normocephalic with EOMI. No rhinorrhea. MMM. No visible JVD or LAD. CARDIOVASCULAR: Regular rate and rhythm with 2/6 systolic ejection murmur. 2+ pulses in all four extremities. RESPIRATORY: Coarse breath sounds throughout both lung dougherty, worsening compared to prior exam. Diffuse expiratory wheezes. Poor inspiratory overall. No increased work of breathing at this time. Left anterior port in place. GASTROINTESTINAL: Abdomen non-tender with positive bowel sounds. ABD taut with mild distension. Reducible ABD wall hernia of midline LLQ. No masses appreciated. MUSCULOSKELETAL: No cyanosis or edema. No RLE calf tenderness. LLE: Leg in immobilizer, CDI. She is able to move her toes and sensation is intact into her foot. Normal capillary refill. 2+ DP/PT pulses. L hip incision site covered with sterile bandage, CDI. Surrounding hematoma improved from prior evaluations without erythema or warmth appreciated. NEURO/PSYCH: Afocal. Oriented to only person which is a change from her initial encounters.. Normal speech and judgement. (Agnes Ibanez MD R1) A/P Assessment and Plan Mrs. Rodriguez is a 81-year-old female presenting with left femoral neck fracture after fall found to have community acquired pneumonia. Discharge Planning Pending improvement of respiratory status Patient will require PT at Rehab (Agnes Ibanez MD R1) Attending Attestation Pt. examined and case discussed with resident physicians I have read the above note and agree with the assessment/plan as discussed with me I was involved in all medical decision making for this patient Steve Pinzon MD (Steve Pinzon MD) Problem List: (1) Left displaced femoral neck fracture ICD Codes: S72.002A - Fracture of unspecified part of neck of left femur, initial encounter for closed fracture Status: Acute Plan: Status post left hip hemiarthroplasty by Dr. Gordon of orthopedics 04/09/17 -Postoperative management per orthopedic surgery -Cleared for discharge -Physical therapy ordered to evaluate patient, recommend PT at rehab -Weight-bear as tolerated per orthopedic note following posterior total hip precautions including the use of the Canvas knee splint -DVT prophylaxis with SCDs and ZENOBIA hose as well as Lovenox Pain control with [place] 1-2 tablets as needed based on pain scale and morphine for breakthrough pain Patient placed on a bowel regimen Ice packs to affected area (2) Community acquired bacterial pneumonia ICD Codes: J15.9 - Unspecified bacterial pneumonia Status: Acute Plan: Chest x-ray indicative of a consolidation in the right lung base concerning for pneumonia -May have played a role in her weakness and fall -Patient met sepsis criteria on 04/10 with tachycardia, WBC of 21, and BP of 93/ 55. Sources of infection include CAP, UTI, and post-op compilations. WBC elevated to 21 , however patient had been treated for her CAP and UTI with Ceftriaxone and Azithromycin since admission without fever. Antibiotics as below: -Continue Vancomycin and Zosyn (started on 04/10) -Discontinued Azithromycin and Rocephin 04/08-04/10 Start Solumedrol 80mg IV PUSH q8hr and Mucinex 600mg PO BID for worsening cough (04/12-) Administer 1x dose of Lasix 40mg IV Push for congestion (04/12) Will consider repeat CXR if worsening respiratory symptoms Duonebs and albuterol every 4 hours when necessary for shortness of breath/ wheezing Supplemental O2 and pulse ox monitoring. Acapella, incentive spirometer. Tylenol, Tessalon available as PRNs. (3) Urinary tract infection ICD Codes: N39.0 - Urinary tract infection, site not specified Plan: -UC from admission with Group D Enterococcus >100,000cfu, sensitivities to follow -May have played a role in her weakness and fall -Patient met sepsis criteria on 04/10 with tachycardia, WBC of 21, and BP of 93/ 55. Sources of infection include CAP, UTI, and post-op compilations. WBC elevated to 21 , however patient had been treated for her CAP and UTI with Ceftriaxone and Azithromycin since admission without fever. Antibiotics as below: -Continue Vancomycin and Zosyn (started on 04/10) -Discontinued Azithromycin and Rocephin (04/08-04/10) (4) Anemia ICD Codes: D64.9 - Anemia, unspecified Plan: Received 2 units PRBCs due to anemia postoperatively -H/H 04/10: 7.8/23.4 -H/H 04/12-8.2/24.6 -Continue to monitor -Plan to transfuse with hemoglobin <7 (No reported ACS history) (5) COPD (chronic obstructive pulmonary disease) ICD Codes: J44.9 - Chronic obstructive pulmonary disease, unspecified Status: Chronic Plan: -Breathing treatments as above -Spriva daily in place of utibron inhaler -Incentive spirometer, acapella, respiratory cpt (6) Ascitic fluid ICD Codes: R18.8 - Other ascites Status: Acute Plan: -Will attempt to contact her PCP today to identify the source of ascites -Consider ultrasound-guided paracentesis prior to discharge if warranted -Deferred due to decreased H/H and platelet count (7) Tremor ICD Codes: R25.1 - Tremor, unspecified Status: Chronic Plan: -Continue ropinirole (8) Diabetes mellitus ICD Codes: E11.9 - Type 2 diabetes mellitus without complications Status: Chronic Plan: -Hold home metformin -Continue gabapentin and pravastatin -Sliding scale insulin per protocol (9) HTN (hypertension) ICD Codes: I10 - Essential (primary) hypertension Status: Chronic Plan: -Continue Lasix, lisinopril, and verapamil (10) Nutrition, metabolism, and development symptoms ICD Codes: R63.8 - Other symptoms and signs concerning food and fluid intake Status: Acute Plan: -Diet: Diabetic Diet -Fluids: Patient tolerating fluids currently by mouth -Electrolytes: Within normal limits, continue to monitor (11) No contraindication to deep vein thrombosis (DVT) prophylaxis ICD Codes: Z78.9 - Other specified health status Status: Acute Plan: -DVT prophylaxis with daily Lovenox -SCDs to unaffected leg (Agnes Ibanez MD R1) Problem Qualifiers (1) Anemia: Qualified Codes: D64.9 - Anemia, unspecified (2) Ascitic fluid: Qualified Codes: R18.8 - Other ascites Agnes Ibanez MD R1 Apr 12, 2017 09:38 Steve Pinzon MD Apr 12, 2017 12:39
[2017-04-12] MEDS: methylPREDNISolone SOD SUCC 125 MG/2 ML VIAL IV PUSH SCH ×3 (10:54→21:36)
[2017-04-12] MEDS: guaiFENesin E.R. 600 MG TAB PO SCH ×2 (10:54→21:36)
[2017-04-12] MEDS: LACTULOSE SYRUP 20 GM/30 ML CUP PO PRN (10:54)
[2017-04-12] MEDS: ACETAMINOPHEN/HYDROcodone 325 MG/5 MG TAB PO PRN ×2 (10:56→15:35)
--- NOTE | 2017-04-12 16:35 | PD.ORT.PN ---
Subjective Post Op Day #: 3 Subjective Remarks The patient is OOB in chair. Little to no pain to the left hip. Mild difficulty breathing. Patient on O2 NC. Objective Vitals Vital Signs Date Time Temp Pulse Resp B/P (MAP) Pulse Ox O2 Delivery O2 Flow Rate FiO2 04/12/17 16:00 97.8 82 17 107/42 (63) 95 04/12/17 12:14 18 04/12/17 12:00 97.5 80 17 108/52 (70) 90 04/12/17 08:50 Nasal Cannula 3.00 04/12/17 08:00 97.1 91 17 103/61 (75) 95 04/12/17 08:00 Nasal Cannula 3.00 04/12/17 07:59 98 Nasal Cannula 3.00 04/11/17 23:15 96.7 92 18 109/57 (74) 96 04/11/17 20:59 96 Nasal Cannula 3.00 04/11/17 20:30 99 Nasal Cannula 3.00 04/11/17 20:20 97.8 96 18 116/65 (82) 99 04/11/17 16:38 98.1 103 19 95/49 (64) 97 I/O 04/11/17 04/11/17 04/11/17 04/12/17 04/12/17 04/12/17 07:00 15:00 23:00 07:00 15:00 23:00 Intake Total 400 ml 3422 ml 2160 ml 1230 ml 530 ml Output Total 225 ml Balance 400 ml 3422 ml 1935 ml 1230 ml 530 ml Intake Oral 400 ml 1110 ml 480 ml 480 ml IV Total 3422 ml 1050 ml 750 ml 50 ml Output Urine Total 225 ml # Voids 2 1 3 2 4 # Bowel Movements 0 0 1 Result Diagram: 04/12/17 0452 04/12/17 0454 Procedures Left hip hemiarthroplasty Objective Remarks Dressing is C/D/I. EHL/TA/G intact. 2+ pedal pulse. Calf is soft and nontender. + SILT. CKS in place. Ecchymosis to the left hip with mild swelling. O2 NC. Breathing is moist and congested. Assessment & Plan Ortho Post Op Day #: 3 Problem List: Assessment and Plan POD #3: Left hip hemiarthroplasty 1. WBAT LLE 2. Lovenox followed by ASA for DVT prophylaxis 3. Ice to the left hip PRN 4. Continue with posterior hip precautions 5. Anticipatory discharge to SNF when medically cleared (likely [facility]) 6. F/U with Dr. Gordon or [facility] Alanis in 1-2 weeks. Ortho signing off. 7. Anemia improved with transfusion. 8. Ascites to be managed by medical Zac Rose Apr 12, 2017 16:35
[2017-04-12] MEDS ORDERED: PHARMACY ORDERED LAB-VANCO TROUGH ONE (17:45)
[2017-04-12] MEDS: VANCOMYCIN INJ 1,250 MG in SODIUM CHLOR 0.9% 250 ML INJ 250 ML IV SCH (19:37)
[2017-04-12] MEDS: MAGNESIUM HYDROXIDE SUSP 30 ML CUP PO PRN (21:35)
[2017-04-13] VITALS (9 sets, daily range): BP systolic 95–142; BP diastolic 54–70; PULSE 76–94; RESP 17–18; TEMP 96.7–97.5; O2SAT 94–98
[2017-04-13] MEDS: RESP: ALBUTEROL 2.5 MG/IPRATROPIUM 0.5 MG NEB (SCH) NEB ×3 (01:00→07:30)
[2017-04-13] MEDS: PIPERACIL-TAZO 3.375 GM PREMIX 50 ML IV SCH ×4 (04:00→22:33)
[2017-04-13 04:51] LABS: AUTOMATED NEUTROPHIL # 3.6 TH/MM3 (1.8-7.7); BASOPHIL % 0.7 % (0.0-2.0); EOSINOPHIL % 0.2 % (0.0-4.0); HEMATOCRIT 22.7 % (35.0-46.0); HEMOGLOBIN 7.6 GM/DL (11.6-15.3); LYMPH % 4.1 % (9.0-44.0); LYMPHOCYTE # 0.2 TH/MM3 (1.0-4.8); MEAN CELL VOLUME 83.8 FL (80.0-100.0); MEAN CORPUSCULAR HEMOGLOBIN 28.1 PG (27.0-34.0); MEAN CORPUSCULAR HGB CONC 33.5 % (32.0-36.0); MEAN PLATELET VOLUME 10.8 FL (7.0-11.0); MONO % 10.9 % (0.0-8.0); MONOCYTE # 0.5 TH/MM3 (0-0.9); NEUT % 84.1 % (16.0-70.0); PLATELET COUNT 52 TH/MM3 (150-450); RED BLOOD COUNT 2.71 MIL/MM3 (4.00-5.30); RED CELL DISTRIBUTION WIDTH 17.5 % (11.6-17.2); WHITE BLOOD COUNT 4.3 TH/MM3 (4.0-11.0)
[2017-04-13 04:58] LABS: INTERNATIONAL NORMALIZED RATIO 1.1 RATIO; PROTHROMBIN TIME - PATIENT 11.6 SEC (9.8-11.6)
[2017-04-13] MEDS: methylPREDNISolone SOD SUCC 125 MG/2 ML VIAL IV PUSH SCH ×3 (05:47→22:33)
[2017-04-13] MEDS: INSULIN ASPART SUPPLEMENTAL SCALE SQ SCH ×4 (08:00→22:33)
[2017-04-13 08:05] LABS: ACANTHOCYTES OCC (NORMAL); OVALOCYTES 1+ (NORMAL)
[2017-04-13] MEDS: FUROSEMIDE 40 MG TAB PO SCH ×2 (08:46→17:56)
[2017-04-13] MEDS: TOLTERODINE TARTRATE 4 MG CAP LA PO SCH (08:46)
[2017-04-13] MEDS: PANTOPRAZOLE SOD 40 MG DELAYED RELEASE TAB PO SCH (08:46)
[2017-04-13] MEDS: DOCUSATE SODIUM 50 MG/SENNA 8.6 MG TAB PO SCH ×2 (08:46→22:34)
[2017-04-13] MEDS: FLUCONAZOLE 200 MG TAB PO SCH (08:46)
[2017-04-13] MEDS: guaiFENesin E.R. 600 MG TAB PO SCH ×2 (08:46→22:34)
[2017-04-13] MEDS: GABAPENTIN 300 MG CAP PO SCH ×3 (08:46→17:56)
[2017-04-13] MEDS: LISINOPRIL 10 MG TAB PO SCH ×2 (08:46→22:34)
[2017-04-13] MEDS: MULTIVITAMINS/MINERALS THERAPEUTIC TAB PO SCH ×2 (08:46→22:35)
[2017-04-13] MEDS: PRAVASTATIN SOD 10 MG TAB PO SCH (08:47)
[2017-04-13] MEDS: CALCIUM CARBONATE 500 MG CHEWABLE TAB CHEW SCH ×2 (08:47→22:35)
[2017-04-13] MEDS: VERAPAMIL HCL 80 MG TAB PO SCH (08:47)
[2017-04-13] MEDS: LACTULOSE SYRUP 20 GM/30 ML CUP PO PRN (08:47)
[2017-04-13] MEDS: TIOTROPIUM BROMIDE 18 MCG INH INH SCH (08:48)
[2017-04-13] MEDS: SODIUM CHLORIDE 0.9% FLUSH 10 ML FLUSH IV FLUSH SCH ×2 (08:48→22:35)
[2017-04-13] MEDS: BISACODYL 10 MG SUPP RECTAL PRN (08:49)
[2017-04-13] MEDS: ACETAMINOPHEN/HYDROcodone 325 MG/5 MG TAB PO PRN (12:22)
--- NOTE | 2017-04-13 12:24 | RADRPT ---
EXAM DATE/TIME: 04/13/2017 09:48 [facility] COMPARISON: No previous studies available for comparison. INDICATIONS : Ascites. MEDICAL HISTORY : Hypertension. Chronic obstructive pulmonary disease. Left femoral head fracture. Diabetes. Cancer. Pneumonia. Anemia. Tremor. SURGICAL HISTORY : Tonsillectomy. Mastectomy, right. Cholecystectomy. Left hip hemiarthroplasty. ENCOUNTER: Initial ACUITY: 1 day PAIN SCORE: 0/10 LOCATION: Four quadrant. AREA EVALUATED: Four quadrant. FINDINGS: Imaging of the abdomen and pelvis was performed to evaluate for ascites for possible paracentesis. Th ere is only a small amount of ascites which is inadequate for safe paracentesis. CONCLUSION: Only a small amount of ascites which is inadequate for safe paracentesis. Placido Steward MD on April 13, 2017 at 12:21 Board Certified Radiologist. This report was verified electronically.
[2017-04-13] MEDS: SODIUM CHLOR 0.9% 1000 ML INJ 1,000 ML IV SCH ×2 (12:36→23:30)
--- NOTE | 2017-04-13 14:06 | HHI.FPPN ---
Subjective Remarks No acute events overnight. Pt sitting up in chair, PT at bedside. Pt reports going down for US abdomen, revealed no drainable fluid. Patient reports that she feels constipated and bloated. She reports having a BM 1-2 days ago, but they were very small. She has no other complaints this AM. She denies CP, SOB, and N/V. (Agnes Ibanez MD R1) Objective Vitals Vital Signs Date Time Temp Pulse Resp B/P (MAP) Pulse Ox O2 Delivery O2 Flow Rate FiO2 04/13/17 08:45 Nasal Cannula 3.00 Humidified 04/13/17 08:00 97.0 94 18 142/68 (92) 97 04/13/17 07:32 96 Nasal Cannula 3.00 04/13/17 04:39 97.3 77 18 107/59 (75) 98 04/13/17 01:01 95 Nasal Cannula 3.00 04/13/17 00:08 96.9 76 18 95/54 (68) 97 04/12/17 21:30 94 Nasal Cannula 3.00 Humidified 04/12/17 20:38 95 Nasal Cannula 3.00 04/12/17 19:47 98.2 94 17 98/56 (70) 94 04/12/17 17:54 97 Nasal Cannula 3.00 04/12/17 17:25 20 04/12/17 16:00 97.8 82 17 107/42 (63) 95 I/O 04/12/17 04/12/17 04/12/17 04/13/17 04/13/17 04/13/17 07:00 15:00 23:00 07:00 15:00 23:00 Intake Total 1230 ml 530 ml 410 ml 530 ml 50 ml Balance 1230 ml 530 ml 410 ml 530 ml 50 ml Intake Oral 480 ml 480 ml 360 ml 480 ml IV Total 750 ml 50 ml 50 ml 50 ml 50 ml # Voids 2 4 3 1 # Bowel Movements 0 1 1 0 (Agnes Ibanez MD R1) Result Diagram: 04/13/17 0414 04/12/17 0454 Objective Remarks GENERAL: Well-nourished, well-developed elderly female sitting up in chair. SKIN: Warm and dry. No rash appreciated. Left elbow: Distal left elbow with large skin tear covered with blood stained Tegaderm. Moderate sized hematoma developing around the lesion. Sensation, strength, and range of motion all intact. HEENT: Atraumatic, normocephalic with EOMI. No rhinorrhea. MMM. No visible JVD or LAD. CARDIOVASCULAR: Regular rate and rhythm with 2/6 systolic ejection murmur. 2+ pulses in all four extremities. RESPIRATORY: Coarse breath sounds throughout both lung dougherty. Diffuse expiratory wheezes. Poor inspiratory overall. No increased work of breathing at this time. Left anterior port in place. GASTROINTESTINAL: Abdomen non-tender with positive bowel sounds. ABD taut with mild distension. Reducible ABD wall hernia of midline LLQ. No masses appreciated. MUSCULOSKELETAL: No cyanosis or edema. No RLE calf tenderness. LLE: Leg in immobilizer, CDI. She is able to move her toes and sensation is intact into her foot. Normal capillary refill. 2+ DP/PT pulses. L hip incision site covered with sterile bandage, CDI. Surrounding hematoma improved from prior evaluations without erythema or warmth appreciated. NEURO/PSYCH: Afocal.Alert, awake, and oriented x3. . Normal speech and judgement. (Anges Ibanez MD R1) A/P Assessment and Plan Mrs. Rodriguez is a 81-year-old female presenting with left femoral neck fracture after fall found to have community acquired pneumonia. Discharge Planning Pending improvement of respiratory status Patient will require PT at Rehab (Agnes Ibanez MD R1) Attending Attestation Patient seen and examined during rounds this morning with resident physicians The patient case and updates were discussed with the resident physicians during rounds I have read the above note and agree with the physical exam and assessment/plan as discussed with me I was involved in all medical decision making for this patient Steve Pinzon MD (Steve Pinzon MD) Problem List: (1) Left displaced femoral neck fracture ICD Codes: S72.002A - Fracture of unspecified part of neck of left femur, initial encounter for closed fracture Status: Acute Plan: Status post left hip hemiarthroplasty by Dr. Gordon of orthopedics 04/09/17 -Postoperative management per orthopedic surgery -Cleared for discharge -Physical therapy ordered to evaluate patient, recommend PT at rehab -Weight-bear as tolerated per orthopedic note following posterior total hip precautions including the use of the Canvas knee splint -DVT prophylaxis with SCDs and ZENOBIA hose as well as Lovenox Pain control with [place] 1-2 tablets as needed based on pain scale and morphine for breakthrough pain Patient placed on a bowel regimen Ice packs to affected area (2) Community acquired bacterial pneumonia ICD Codes: J15.9 - Unspecified bacterial pneumonia Status: Acute Plan: Chest x-ray indicative of a consolidation in the right lung base concerning for pneumonia -May have played a role in her weakness and fall -Patient met sepsis criteria on 04/10 with tachycardia, WBC of 21, and BP of 93/ 55. Sources of infection include CAP, UTI, and post-op compilations. WBC elevated to 21 , however patient had been treated for her CAP and UTI with Ceftriaxone and Azithromycin since admission without fever. Antibiotics as below: -Continue Vancomycin and Zosyn (started on 04/10) -Discontinued Azithromycin and Rocephin 04/08-04/10 Continue Solumedrol 80mg IV PUSH q8hr and Mucinex 600mg PO BID for worsening cough (04/12-) Continue Lasix 40mg PO daily, will increase dose today Will consider repeat CXR if worsening respiratory symptoms Duonebs and albuterol every 4 hours when necessary for shortness of breath/ wheezing Supplemental O2 and pulse ox monitoring. Acapella, incentive spirometer. Tylenol, Tessalon available as PRNs. (3) Urinary tract infection ICD Codes: N39.0 - Urinary tract infection, site not specified Plan: -UC from admission with Group D Enterococcus >100,000cfu, sensitivities to follow -May have played a role in her weakness and fall -Patient met sepsis criteria on 04/10 with tachycardia, WBC of 21, and BP of 93/ 55. Sources of infection include CAP, UTI, and post-op compilations. WBC elevated to 21 , however patient had been treated for her CAP and UTI with Ceftriaxone and Azithromycin since admission without fever. Antibiotics as below: -Continue Vancomycin and Zosyn (started on 04/10) -Discontinued Azithromycin and Rocephin (04/08-04/10) (4) Ascitic fluid ICD Codes: R18.8 - Other ascites Status: Acute Plan: -US abdomen demonstrated only a small amount of ascites, inadequate for safe paracentesis (5) Abdominal distention ICD Codes: R14.0 - Abdominal distension (gaseous) Plan: -Most likely due to gas and constipation -Will increase bowel regimen (6) Anemia ICD Codes: D64.9 - Anemia, unspecified Plan: Received 2 units PRBCs due to anemia postoperatively -H/H 7.6/22.7 -Stable, will recheck CBC in 72 hours -Plan to transfuse with hemoglobin <7 (No reported ACS history) (7) COPD (chronic obstructive pulmonary disease) ICD Codes: J44.9 - Chronic obstructive pulmonary disease, unspecified Status: Chronic Plan: -Breathing treatments as above -Spriva daily in place of utibron inhaler -Incentive spirometer, acapella, respiratory cpt (8) Tremor ICD Codes: R25.1 - Tremor, unspecified Status: Chronic Plan: -Continue ropinirole (9) Diabetes mellitus ICD Codes: E11.9 - Type 2 diabetes mellitus without complications Status: Chronic Plan: -Hold home metformin -Continue gabapentin and pravastatin -Sliding scale insulin per protocol (10) HTN (hypertension) ICD Codes: I10 - Essential (primary) hypertension Status: Chronic Plan: -Continue Lasix, lisinopril, and verapamil (11) Nutrition, metabolism, and development symptoms ICD Codes: R63.8 - Other symptoms and signs concerning food and fluid intake Status: Acute Plan: -Diet: Diabetic Diet -Fluids: Patient tolerating fluids currently by mouth -Electrolytes: Within normal limits, continue to monitor (12) No contraindication to deep vein thrombosis (DVT) prophylaxis ICD Codes: Z78.9 - Other specified health status Status: Acute Plan: -DVT prophylaxis with daily Lovenox -SCDs to unaffected leg (Agnes Ibanez MD R1) Problem Qualifiers (1) Ascitic fluid: Qualified Codes: R18.8 - Other ascites (2) Anemia: Qualified Codes: D64.9 - Anemia, unspecified Agnes Ibanez MD R1 Apr 13, 2017 14:06 Steve Pinzon MD Apr 13, 2017 16:48
[2017-04-13] MEDS ORDERED: MAGNESIUM CITRATE SOLN 300 ML BTL PO ONE (14:30)
[2017-04-13] MEDS ORDERED: MINERAL OIL ENEMA 118 ML BTL RECTAL PRN (14:30)
--- NOTE | 2017-04-13 16:25 | PD.WCN.NOT ---
Wound Consult Description: Wound consult ordered by R3 for left elbow Communicated with: Anika VARGAS [place], Recommendation: 1) Cleanse left elbow skin tear with normal saline pat dry 2) Apply gentle boarder foam dressing change every 7 days or as needed for dislodgement 3) Apply skin prep to area when no open wound present and leave open to air. Additional Information: Patient was seen today on by principal technical writer for left elbow skin tear.Anika VARGAS available if needed for assistance.Patient is alert in chair with no current complaints of pain or discomfort.Dressing removed from Left elbow to reveal a healing skin tear that is well approximated no drainage or odor noted.Skin flap intact over wound and adhered to wound base.Patient has diffuse ecchymosis to bilateral upper extremities.Left elbow cleansed with normal saline pat dry , skin prep applied to periwound and foam dressing applied .Dressing sign and dated .Instructed patient to avoid pressure to susie prominences and if able wear long sleeves to protect skin . Michael Barber [facility] Apr 13, 2017 16:25
[2017-04-13] MEDS ORDERED: PHARMACY ORDERED LAB ONE (17:45)
[2017-04-13] MEDS: VANCOMYCIN INJ 1,250 MG in SODIUM CHLOR 0.9% 250 ML INJ 250 ML IV SCH (17:56)
[2017-04-13] MEDS ORDERED: MINERAL OIL ENEMA 118 ML BTL RECTAL ONE (21:00)
[2017-04-14] MEDS: RESP: ALBUTEROL 2.5 MG/3 ML NEB (SCH) INH ×2 (00:31→09:14)
[2017-04-14 00:34] VITALS: O2SAT 97
[2017-04-14] MEDS: RESP: ALBUTEROL 2.5 MG/IPRATROPIUM 0.5 MG NEB (SCH) INH ×2 (02:45→13:16)
[2017-04-14] MEDS: methylPREDNISolone SOD SUCC 125 MG/2 ML VIAL IV PUSH SCH ×2 (05:23→12:18)
[2017-04-14] MEDS: PIPERACIL-TAZO 3.375 GM PREMIX 50 ML IV SCH ×2 (05:24→08:37)
[2017-04-14 08:00] VITALS: BP 118/63; PULSE 86; RESP 17; TEMP 95.5; O2SAT 98
[2017-04-14] MEDS: INSULIN ASPART SUPPLEMENTAL SCALE SQ SCH ×2 (08:00→12:00)
[2017-04-14 08:28] LABS: BICARBONATE 25.7 MEQ/L (21.0-32.0); CALCIUM 9.2 MG/DL (8.5-10.1); CREATININE 1.38 MG/DL (0.50-1.00)
[2017-04-14] MEDS: VERAPAMIL HCL 80 MG TAB PO SCH (08:34)
[2017-04-14] MEDS: PRAVASTATIN SOD 10 MG TAB PO SCH (08:35)
[2017-04-14] MEDS: LISINOPRIL 10 MG TAB PO SCH (08:35)
[2017-04-14] MEDS: MULTIVITAMINS/MINERALS THERAPEUTIC TAB PO SCH (08:35)
[2017-04-14] MEDS: PANTOPRAZOLE SOD 40 MG DELAYED RELEASE TAB PO SCH (08:35)
[2017-04-14] MEDS: DOCUSATE SODIUM 50 MG/SENNA 8.6 MG TAB PO SCH (08:35)
[2017-04-14] MEDS: TOLTERODINE TARTRATE 4 MG CAP LA PO SCH (08:35)
[2017-04-14] MEDS: FUROSEMIDE 40 MG TAB PO SCH (08:35)
[2017-04-14] MEDS: GABAPENTIN 300 MG CAP PO SCH ×2 (08:35→12:18)
[2017-04-14] MEDS: guaiFENesin E.R. 600 MG TAB PO SCH (08:35)
[2017-04-14] MEDS: ENOXAPARIN SODIUM 40 MG/0.4 ML SYRINGE SQ SCH (08:36)
[2017-04-14] MEDS: SODIUM CHLOR 0.9% 1000 ML INJ 1,000 ML IV SCH (08:36)
[2017-04-14] MEDS: CALCIUM CARBONATE 500 MG CHEWABLE TAB CHEW SCH (08:36)
[2017-04-14] MEDS: SODIUM CHLORIDE 0.9% FLUSH 10 ML FLUSH IV FLUSH SCH (08:36)
[2017-04-14] MEDS: TIOTROPIUM BROMIDE 18 MCG INH INH SCH (08:37)
[2017-04-14] MEDS: FLUCONAZOLE 200 MG TAB PO SCH (08:38)
--- NOTE | 2017-04-14 09:44 | HHI.FPPN ---
Subjective Remarks No acute events overnight. Pt sitting on commode this morning. Patient tech at bedside. Pt reports that she had a couple of loose BM yesterday after receiving magnesium citrate. She is still SOB, currently on 3 L NC. She denies CP, abdominal pain, and N/V. (Agnes Ibanez MD R1) Objective Vitals Vital Signs Date Time Temp Pulse Resp B/P (MAP) Pulse Ox O2 Delivery O2 Flow Rate FiO2 04/14/17 09:16 Nasal Cannula 3.00 04/14/17 00:34 97 Nasal Cannula 3.00 04/13/17 23:27 96.7 82 17 116/70 (85) 94 04/13/17 19:18 96.7 78 18 106/67 (80) 97 04/13/17 16:31 97 Nasal Cannula 3.00 04/13/17 12:00 97.5 88 18 119/57 (77) 97 I/O 04/13/17 04/13/17 04/13/17 04/14/17 04/14/17 04/14/17 07:00 15:00 23:00 07:00 15:00 23:00 Intake Total 530 ml 50 ml 1080 ml 240 ml Balance 530 ml 50 ml 1080 ml 240 ml Intake Oral 480 ml 1080 ml 240 ml IV Total 50 ml 50 ml # Voids 1 5 3 # Bowel Movements 0 2 0 (Agnes Ibanez MD R1) Result Diagram: 04/13/17 0414 04/14/17 0655 Objective Remarks GENERAL: Well-nourished, well-developed elderly female sitting up in chair. SKIN: Warm and dry. No rash appreciated. Left elbow: Distal left elbow with large skin tear covered with blood stained Tegaderm. Moderate sized hematoma developing around the lesion. Sensation, strength, and range of motion all intact. HEENT: Atraumatic, normocephalic with EOMI. No rhinorrhea. MMM. No visible JVD or LAD. CARDIOVASCULAR: Regular rate and rhythm with 2/6 systolic ejection murmur. 2+ pulses in all four extremities. RESPIRATORY: Coarse breath sounds throughout both lung dougherty. Diffuse expiratory wheezes. Poor inspiratory overall. No increased work of breathing at this time. Left anterior port in place. GASTROINTESTINAL: Abdomen non-tender with positive bowel sounds. ABD taut with mild distension. Reducible ABD wall hernia of midline LLQ. No masses appreciated. MUSCULOSKELETAL: No cyanosis or edema. No RLE calf tenderness. LLE: Leg in immobilizer, CDI. She is able to move her toes and sensation is intact into her foot. Normal capillary refill. 2+ DP/PT pulses. L hip incision site covered with sterile bandage, CDI. Surrounding hematoma improved from prior evaluations without erythema or warmth appreciated. NEURO/PSYCH: Afocal.Alert, awake, and oriented x3. . Normal speech and judgement. (Agnes Ibanez MD R1) A/P Assessment and Plan Mrs. Rodriguez is a 81-year-old female presenting with left femoral neck fracture after fall found to have community acquired pneumonia. Discharge Planning Plan to discharge with PT at [place] (Agnes Ibanez MD R1) Attending Attestation Pt. examined and case discussed with resident physicians. I personally examined patient this morning during rounds separate from the residents. I have read the above note and agree with the assessment and plan as discussed with me. I was involved in all medical decision making for this patient. Steve Pinzon MD (Steve Pinzon MD) Problem List: (1) Left displaced femoral neck fracture ICD Codes: S72.002A - Fracture of unspecified part of neck of left femur, initial encounter for closed fracture Status: Acute Plan: Status post left hip hemiarthroplasty by Dr. Gordon of orthopedics 04/09/17 -Postoperative management per orthopedic surgery -Cleared for discharge -Physical therapy ordered to evaluate patient, recommend PT at rehab -Weight-bear as tolerated per orthopedic note following posterior total hip precautions including the use of the Canvas knee splint -DVT prophylaxis with SCDs and ZENOBIA hose as well as Lovenox Pain control with [place] 1-2 tablets as needed based on pain scale and morphine for breakthrough pain Patient placed on a bowel regimen Ice packs to affected area (2) Community acquired bacterial pneumonia ICD Codes: J15.9 - Unspecified bacterial pneumonia Status: Acute Plan: Chest x-ray indicative of a consolidation in the right lung base concerning for pneumonia -May have played a role in her weakness and fall -Patient met sepsis criteria on 04/10 with tachycardia, WBC of 21, and BP of 93/ 55. Sources of infection include CAP, UTI, and post-op compilations. WBC elevated to 21 , however patient had been treated for her CAP and UTI with Ceftriaxone and Azithromycin since admission without fever. Antibiotics as below: -Continue Vancomycin and Zosyn (started on 04/10) -Patient will be transition to Levaquin 750mg for 5 days upon discharge -Discontinued Azithromycin and Rocephin 04/08-04/10 Continue Solumedrol 80mg IV PUSH q8hr and Mucinex 600mg PO BID for worsening cough (04/12-) Continue Lasix 40mg PO BID Will consider repeat CXR if worsening respiratory symptoms Duonebs and albuterol every 4 hours when necessary for shortness of breath/ wheezing Supplemental O2 and pulse ox monitoring. Acapella, incentive spirometer. Tylenol, Tessalon available as PRNs. (3) Anemia ICD Codes: D64.9 - Anemia, unspecified Status: Chronic Plan: -Team discussed with PCP, pt has chronic anemia with B cell lymphoma -[facility] -Plan to transfuse with hemoglobin <7 (No reported ACS history) (4) Urinary tract infection ICD Codes: N39.0 - Urinary tract infection, site not specified Plan: -UC from admission with Group D Enterococcus >100,000cfu, sensitivities to follow -May have played a role in her weakness and fall -Patient met sepsis criteria on 04/10 with tachycardia, WBC of 21, and BP of 93/ 55. Sources of infection include CAP, UTI, and post-op compilations. WBC elevated to 21 , however patient had been treated for her CAP and UTI with Ceftriaxone and Azithromycin since admission without fever. Antibiotics as below: -Continue Vancomycin and Zosyn (started on 04/10) -Discontinued Azithromycin and Rocephin (04/08-04/10) (5) Ascitic fluid ICD Codes: R18.8 - Other ascites Status: Acute Plan: -US abdomen demonstrated only a small amount of ascites, inadequate for safe paracentesis (6) Abdominal distention ICD Codes: R14.0 - Abdominal distension (gaseous) Plan: -Most likely due to gas and constipation (7) COPD (chronic obstructive pulmonary disease) ICD Codes: J44.9 - Chronic obstructive pulmonary disease, unspecified Status: Chronic Plan: -Breathing treatments as above -Spriva daily in place of utibron inhaler -Incentive spirometer, acapella, respiratory cpt (8) Tremor ICD Codes: R25.1 - Tremor, unspecified Status: Chronic Plan: -Continue ropinirole (9) Diabetes mellitus ICD Codes: E11.9 - Type 2 diabetes mellitus without complications Status: Chronic Plan: -Hold home metformin -Continue gabapentin and pravastatin -Sliding scale insulin per protocol (10) HTN (hypertension) ICD Codes: I10 - Essential (primary) hypertension Status: Chronic Plan: -Continue Lasix, lisinopril, and verapamil (11) Nutrition, metabolism, and development symptoms ICD Codes: R63.8 - Other symptoms and signs concerning food and fluid intake Status: Acute Plan: -Diet: Diabetic Diet -Fluids: Patient tolerating fluids currently by mouth -Electrolytes: Within normal limits, continue to monitor (12) No contraindication to deep vein thrombosis (DVT) prophylaxis ICD Codes: Z78.9 - Other specified health status Status: Acute Plan: -DVT prophylaxis with daily Lovenox -SCDs to unaffected leg (Agnes Ibanez MD R1) Problem Qualifiers (1) Anemia: Qualified Codes: D64.9 - Anemia, unspecified (2) Ascitic fluid: Qualified Codes: R18.8 - Other ascites Agnes Ibanez MD R1 Apr 14, 2017 09:44 Steve Pinzon MD Apr 14, 2017 20:53
[2017-04-14 11:49] LABS: HEMATOCRIT 25.2 % (35.0-46.0); HEMOGLOBIN 8.3 GM/DL (11.6-15.3); MEAN CELL VOLUME 83.5 FL (80.0-100.0); MEAN CORPUSCULAR HEMOGLOBIN 27.5 PG (27.0-34.0); MEAN PLATELET VOLUME 10.5 FL (7.0-11.0); PLATELET COUNT 58 TH/MM3 (150-450); RED BLOOD COUNT 3.02 MIL/MM3 (4.00-5.30); RED CELL DISTRIBUTION WIDTH 17.7 % (11.6-17.2); WHITE BLOOD COUNT 7.6 TH/MM3 (4.0-11.0)
[2017-04-14 12:00] VITALS: BP 140/73; PULSE 92; RESP 1; TEMP 96.2; O2SAT 97
[2017-04-14] MEDS: ACETAMINOPHEN/HYDROcodone 325 MG/5 MG TAB PO PRN (12:20)
[2017-04-14] MEDS ORDERED: guaiFENesin ER PO (12:52)
[2017-04-14] MEDS ORDERED: PRED10 PO (12:52)
[2017-04-14] MEDS ORDERED: FURO40TA PO (12:52)
[2017-04-14] MEDS ORDERED: LEVA750T9 PO (12:52)
[2017-04-14] MEDS ORDERED: Lactulose Liq PO (12:52)
[2017-04-14] MEDS ORDERED: Albuterol-Ipratropium Neb INH ×2 (12:52)
[2017-04-14] MEDS ORDERED: DIFL200T PO (12:52)
[2017-04-14] MEDS ORDERED: BENZ100 PO (12:52)
--- NOTE | 2017-04-14 12:52 | HHI.DS ---
Discharge Summary Admission Date Apr 08, 2017 at 18:23 Admitting Diagnosis L femoral neck fracture; pulmonary infiltrate; hx of infiltrates (1) Left displaced femoral neck fracture Plan: Status post left hip hemiarthroplasty by Dr. Gordon of orthopedics 04/09/17 -Postoperative management per orthopedic surgery -Cleared for discharge -Physical therapy ordered to evaluate patient, recommend PT at rehab -Weight-bear as tolerated per orthopedic note following posterior total hip precautions including the use of the Canvas knee splint -DVT prophylaxis with SCDs and ZENOBIA hose as well as Lovenox Pain control with [place] 1-2 tablets as needed based on pain scale and morphine for breakthrough pain Patient placed on a bowel regimen Ice packs to affected area ICD Codes: S72.002A - Fracture of unspecified part of neck of left femur, initial encounter for closed fracture Status: Acute (2) Community acquired bacterial pneumonia Plan: Chest x-ray indicative of a consolidation in the right lung base concerning for pneumonia -May have played a role in her weakness and fall -Patient met sepsis criteria on 04/10 with tachycardia, WBC of 21, and BP of 93/ 55. Sources of infection include CAP, UTI, and post-op compilations. WBC elevated to 21 , however patient had been treated for her CAP and UTI with Ceftriaxone and Azithromycin since admission without fever. Antibiotics as below: -Continue Vancomycin and Zosyn (started on 04/10) -Patient will be transition to Levaquin 750mg for 5 days upon discharge -Discontinued Azithromycin and Rocephin 04/08-04/10 Continue Solumedrol 80mg IV PUSH q8hr and Mucinex 600mg PO BID for worsening cough (04/12-) Continue Lasix 40mg PO BID Will consider repeat CXR if worsening respiratory symptoms Duonebs and albuterol every 4 hours when necessary for shortness of breath/ wheezing Supplemental O2 and pulse ox monitoring. Acapella, incentive spirometer. Tylenol, Tessalon available as PRNs. ICD Codes: J15.9 - Unspecified bacterial pneumonia Status: Acute (3) Anemia Plan: -Team discussed with PCP, pt has chronic anemia with B cell lymphoma -Repeat CBC ordered for this AM for [facility] evaluation -Plan to transfuse with hemoglobin <7 (No reported ACS history) ICD Codes: D64.9 - Anemia, unspecified Status: Chronic (4) Urinary tract infection Plan: -UC from admission with Group D Enterococcus >100,000cfu, sensitivities to follow -May have played a role in her weakness and fall -Patient met sepsis criteria on 04/10 with tachycardia, WBC of 21, and BP of 93/ 55. Sources of infection include CAP, UTI, and post-op compilations. WBC elevated to 21 , however patient had been treated for her CAP and UTI with Ceftriaxone and Azithromycin since admission without fever. Antibiotics as below: -Continue Vancomycin and Zosyn (started on 04/10) -Discontinued Azithromycin and Rocephin (04/08-04/10) ICD Codes: N39.0 - Urinary tract infection, site not specified (5) Ascitic fluid Plan: -US abdomen demonstrated only a small amount of ascites, inadequate for safe paracentesis ICD Codes: R18.8 - Other ascites Status: Acute (6) Abdominal distention Plan: -Most likely due to gas and constipation ICD Codes: R14.0 - Abdominal distension (gaseous) (7) COPD (chronic obstructive pulmonary disease) Plan: -Breathing treatments as above -Spriva daily in place of utibron inhaler -Incentive spirometer, acapella, respiratory cpt ICD Codes: J44.9 - Chronic obstructive pulmonary disease, unspecified Status: Chronic (8) Tremor Plan: -Continue ropinirole ICD Codes: R25.1 - Tremor, unspecified Status: Chronic (9) Diabetes mellitus Plan: -Hold home metformin -Continue gabapentin and pravastatin -Sliding scale insulin per protocol ICD Codes: E11.9 - Type 2 diabetes mellitus without complications Status: Chronic (10) HTN (hypertension) Plan: -Continue Lasix, lisinopril, and verapamil ICD Codes: I10 - Essential (primary) hypertension Status: Chronic (11) Nutrition, metabolism, and development symptoms Plan: -Diet: Diabetic Diet -Fluids: Patient tolerating fluids currently by mouth -Electrolytes: Within normal limits, continue to monitor ICD Codes: R63.8 - Other symptoms and signs concerning food and fluid intake Status: Acute (12) No contraindication to deep vein thrombosis (DVT) prophylaxis Plan: -DVT prophylaxis with daily Lovenox -SCDs to unaffected leg ICD Codes: Z78.9 - Other specified health status Status: Acute Brief History Patient was seen in the PACU immediately following left hip surgery for femoral neck fracture. In the PACU, she has no significant complaints and specifically denies chest pain or palpitations. Surgical notes are not available at this time, and the PACU staff is preparing to hang 2 units PRBCs for her anemia. In summary, this is an 81 y/o F presenting to the ED after a fall. 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 This resulted in her full and hip first to the ground. She immediately felt 10/10 hip pain on the left side. She denies any "pop" to her knowledge. She is able to remember the whole episode and there is no loss of consciousness. After falling, she then presented to an outpatient radiology Center in the [facility]. There she was diagnosed with a left femoral neck fracture. Her only other complaint today is abdominal distention. She reports that she is scheduled for a ascitic fluid drainage on Tuesday at 0800. However she is unable to complete her past medical history cannot inform the medical team of her medications or prior diagnoses. She is currently requesting that drainage occur while she is in the hospital. Otherwise she has no complaints and denies any fevers, chills, shortness of breath, chest, back, abdominal pain, or calf tenderness. CBC/BMP: 04/14/17 1057 04/14/17 0655 Significant Findings Laboratory Tests Test 04/11/17 15:13 04/12/17 04:52 04/12/17 04:54 04/12/17 19:33 Hemoglobin 8.1 GM/DL (11.6-15.3) 8.2 GM/DL (11.6-15.3) Hematocrit 24.4 % (35.0-46.0) 24.6 % (35.0-46.0) Red Blood Count 2.88 MIL/MM3 (4.00-5.30) Red Cell Distribution Width 17.8 % (11.6-17.2) Platelet Count 61 TH/MM3 (150-450) Mean Platelet Volume 11.5 FL (7.0-11.0) Neutrophils % (Manual) 79 % (16-70) Band Neutrophils % 12 % (0-6) Lymphocytes % 2 % (9-44) Neutrophils # (Manual) 7.9 TH/MM3 (1.8-7.7) Platelet Estimate LOW (NORMAL) Sickle Cells 1+ (NORMAL) Ovalocytes 2+ (NORMAL) Keratocytes 1+ (NORMAL) Blood Urea Nitrogen 27 MG/DL (7-18) Creatinine 1.02 MG/DL (0.50-1.00) Random Glucose 123 MG/DL (74-106) Total Protein 4.7 GM/DL (6.4-8.2) Albumin 2.4 GM/DL (3.4-5.0) Calcium Level 8.0 MG/DL (8.5-10.1) Chloride Level 110 MEQ/L (98-107) Estimat Glomerular Filtration Rate 52 ML/MIN (>89) Vancomycin Level Trough 11.6 MCG/ML (5.0-10.0) Test 04/13/17 04:14 04/13/17 17:29 04/14/17 06:55 04/14/17 10:57 Red Blood Count 2.71 MIL/MM3 (4.00-5.30) 3.02 MIL/MM3 (4.00-5.30) Hemoglobin 7.6 GM/DL (11.6-15.3) 8.3 GM/DL (11.6-15.3) Hematocrit 22.7 % (35.0-46.0) 25.2 % (35.0-46.0) Red Cell Distribution Width 17.5 % (11.6-17.2) 17.7 % (11.6-17.2) Platelet Count 52 TH/MM3 (150-450) 58 TH/MM3 (150-450) Neutrophils (%) (Auto) 84.1 % (16.0-70.0) Lymphocytes (%) (Auto) 4.1 % (9.0-44.0) Monocytes (%) (Auto) 10.9 % (0.0-8.0) Lymphocytes # (Auto) 0.2 TH/MM3 (1.0-4.8) Platelet Estimate LOW (NORMAL) Platelet Morphology Comment ENLARGED (NORMAL) Ovalocytes 1+ (NORMAL) Acanthocytes OCC (NORMAL) Activated Partial Thromboplast Time 42.8 SEC (24.3-30.1) Vancomycin Level Trough 17.0 MCG/ML (5.0-10.0) Blood Urea Nitrogen 43 MG/DL (7-18) Creatinine 1.38 MG/DL (0.50-1.00) Random Glucose 185 MG/DL (74-106) Estimat Glomerular Filtration Rate 37 ML/MIN (>89) PE at Discharge GENERAL: Well-nourished, well-developed elderly female sitting up in chair. SKIN: Warm and dry. No rash appreciated. Left elbow: Distal left elbow with large skin tear covered with blood stained Tegaderm. Moderate sized hematoma developing around the lesion. Sensation, strength, and range of motion all intact. HEENT: Atraumatic, normocephalic with EOMI. No rhinorrhea. MMM. No visible JVD or LAD. CARDIOVASCULAR: Regular rate and rhythm with 2/6 systolic ejection murmur. 2+ pulses in all four extremities. RESPIRATORY: Coarse breath sounds throughout both lung dougherty. Diffuse expiratory wheezes. Poor inspiratory overall. No increased work of breathing at this time. Left anterior port in place. GASTROINTESTINAL: Abdomen non-tender with positive bowel sounds. ABD taut with mild distension. Reducible ABD wall hernia of midline LLQ. No masses appreciated. MUSCULOSKELETAL: No cyanosis or edema. No RLE calf tenderness. LLE: Leg in immobilizer, CDI. She is able to move her toes and sensation is intact into her foot. Normal capillary refill. 2+ DP/PT pulses. L hip incision site covered with sterile bandage, CDI. Surrounding hematoma improved from prior evaluations without erythema or warmth appreciated. NEURO/PSYCH: Afocal.Alert, awake, and oriented x3. . Normal speech and judgement. Discharge Instructions Activities you can perform: Weight Bearing as Asiya Fredy Main MD R2 Apr 14, 2017 12:52
--- NOTE | 2017-04-14 12:53 | HHI.DCPOC ---
Discharge Care Plan Diagnosis: (1) Left displaced femoral neck fracture (2) Abdominal distention (3) Tremor (4) HTN (hypertension) (5) Diabetes mellitus (6) COPD (chronic obstructive pulmonary disease) Goals to Promote Your Health * To prevent worsening of your condition and complications * To maintain your health at the optimal level Directions to Meet Your Goals Take your medications as prescribed Follow your dietary instruction Follow activity as directed Keep your appointments as scheduled Take your immunizations and boosters as scheduled If your symptoms worsen call your PCP, if no PCP go to Urgent Care Center or Emergency Room Smoking is Dangerous to Your Health. Avoid second hand smoke Call the 24-hour hour crisis hotline for domestic abuse at Fredy Main MD R2 Apr 14, 2017 12:53
[2017-04-14 13:00] VITALS: BP 145/91; PULSE 93; RESP 17; TEMP 95.5; O2SAT 98
[2017-04-14 13:26] VITALS: RESP 18
[2017-04-14] MEDS ORDERED: PHARMACY ORDERED LAB ONE (17:45)
[2017-04-15] MEDS ORDERED: ENOXAPARIN SODIUM 30 MG/0.3 ML SYRINGE SQ SCH (09:00)
== END 2017-04-14 15:29 | DRG 469 ==
LOC: NEPE 15:13 → NEDA 18:23 → N06B 20:36
PROVIDERS: ADMIT Family Medicine; ATTEND Family Medicine
PROC: 30233N1 Transfusion of Nonautologous Red Blood Cells into Peripheral Vein, Percutaneous Approach (ICD-10-PCS; 2017-04-09)
PROC: 0SRS0JA Replacement of Left Hip Joint, Femoral Surface with Synthetic Substitute, Uncemented, Open Approach (ICD-10-PCS; principal; 2017-04-09 07:16)
DX: S72.002A Fracture of unspecified part of neck of left femur, initial encounter for closed fracture (principal); J18.9 Pneumonia, unspecified organism; A41.9 Sepsis, unspecified organism; R18.8 Other ascites; J44.0 Chronic obstructive pulmonary disease with (acute) lower respiratory infection; N39.0 Urinary tract infection, site not specified; E11.9 Type 2 diabetes mellitus without complications; C85.10 Unspecified B-cell lymphoma, unspecified site; D64.9 Anemia, unspecified; I10 Essential (primary) hypertension; S51.012A Laceration without foreign body of left elbow, initial encounter; R25.1 Tremor, unspecified; B95.2 Enterococcus as the cause of diseases classified elsewhere; K59.00 Constipation, unspecified; R14.0 Abdominal distension (gaseous); W19.XXXA Unspecified fall, initial encounter; Y92.89 Other specified places as the place of occurrence of the external cause; Z85.3 Personal history of malignant neoplasm of breast; Z79.84 Long term (current) use of oral hypoglycemic drugs
CPT/HCPCS: 36430; 71045; 72170; 73502; 76705; 80048; 80053; 80202; 81001; 82306; 82948; 83605; 85007; 85014; 85018; 85025; 85027; 85610; 85730; 86850; 86900; 86901; 86920; 87040; 87077; 87086; 87186; 87449; 93005; 94150; 94640; 94664; 94667; 94668; 96374; 96375; C1776; J0456; J0690; J0696; J1100; J1580; J1650; J1815; J1940; J2270; J2370; J2405; J2543; J2710; J2930; J3010; J3370; J7030; J7040; J7050; J7120; J7613; L1830; P9016

== ENCOUNTER → 2017-04-08 | Outpatient (CLI) | payer MEDICARE, BC ==
[~2017-04-08] MED LIST: ASPI-146 PO; Albuterol-Ipratropium Neb INH; BENZ100 PO; COLA100C5; COMMODE 3-IN-11 MIS; DIFL200T PO; ENOX40IN SQ; FURO1TAB60 PO; FURO40TA PO; GABA300C5 PO; INDA1CAP2; LEVA750T9 PO; LISI10TA3 PO; Lactulose Liq PO; METF500T PO; NORC5TAB PO; OMEP40CA2; OXYB10TA PO; PRAV10TA PO; PRED10 PO; ROPI1TAB; VENTAER INH; VERA80TA PO; WALKER WHEELS/F1 MIS; guaiFENesin ER PO
[2017-04-08 11:14] LABS: HEMATOCRIT 26.1 % (35.0-46.0); HEMOGLOBIN 8.8 GM/DL (11.6-15.3); MEAN CELL VOLUME 82.9 FL (80.0-100.0); MEAN CORPUSCULAR HEMOGLOBIN 27.9 PG (27.0-34.0); MEAN CORPUSCULAR HGB CONC 33.7 % (32.0-36.0); MEAN PLATELET VOLUME 10.8 FL (7.0-11.0); PLATELET COUNT 84 TH/MM3 (150-450); RED BLOOD COUNT 3.14 MIL/MM3 (4.00-5.30); RED CELL DISTRIBUTION WIDTH 17.9 % (11.6-17.2); WHITE BLOOD COUNT 6.9 TH/MM3 (4.0-11.0)
[2017-04-08 11:25] LABS: INTERNATIONAL NORMALIZED RATIO 1.2 RATIO; PROTHROMBIN TIME - PATIENT 12.5 SEC (9.8-11.6)
== END ==
LOC: CLAB 10:48
PROVIDERS: ATTEND Radiology Body Imaging
DX: C83.30 Diffuse large B-cell lymphoma, unspecified site (principal)
CPT/HCPCS: 36415; 85027; 85610

== ENCOUNTER 2017-06-03 09:07 | Day surgery (SDC) | payer MEDICARE, BC ==
[~2017-06-03 09:07] MED LIST changes: -COLA100C5; -DIFL200T PO; -ENOX40IN SQ; +FERR325T20 PO; -FURO1TAB60 PO; +FURO20TA PO; -FURO40TA PO; -LEVA750T9 PO; -Lactulose Liq PO; +MAGICADU2 SWISH-SWAL; -METF500T PO; +NEUR300C PO; +Nystatin Powder TOPICAL; -OMEP40CA2; +OMEP40CA2 PO; +OXYM.05%I NASAL; +PERI PO; -ROPI1TAB; +ROPI1TAB PO; +SPIRCAP INH; +THERTAB15 PO
[2017-06-03 09:33] LABS: INTERNATIONAL NORMALIZED RATIO 1.2 RATIO
--- NOTE | 2017-06-03 11:34 | PD.RAD ---
Post US Procedure Prog Note Pre Procedure Diagnosis: (1) Ascites Post Procedure Diagnosis: (1) Ascites Procedure Date: Jun 03, 2017 Supervising Radiologist: Jagdeep Sofia Proceduralist/Assist: Daisy Chappell RDMS Anesthesia: Local Plan of Activity Patient to Unit: ROPU Patient Condition: Fair See PACS Report for procedural detail/treatment Drainage Procedure Procedure 1 Imaging Guidance: Ultrasound Side: Right Procedure: Removal Drainage: Suction Fluid Description: Clear, Yellow Jagdeep Sofia MD Jun 03, 2017 11:34
[2017-06-03 12:20] VITALS: BP 126/61; PULSE 89; RESP 20; TEMP 98.6; O2SAT 90
[2017-06-03] MEDS ORDERED: LIDOCAINE HCL 1% PF 30 ML VIAL ONE (12:22)
[2017-06-03 12:35] VITALS: BP 143/77; PULSE 93; RESP 20; O2SAT 93
--- NOTE | 2017-06-03 13:15 | RADRPT ---
EXAM DATE/TIME: 06/03/2017 10:36 [facility] COMPARISON: US GUIDED ABD PARACENTESIS, April 22, 2017, 13:14. INDICATIONS : Ascites. MEDICAL HISTORY : Hyperthyroidism. Chronic obstructive pulmonary disease. Carcinoma, breast. Left femoral head fracture . Diabetes. Pneumonia. Anemia. Tremors. Ascites. SURGICAL HISTORY : Tonsillectomy. Mastectomy, right. Cholecystectomy. Left hiphemiarthroplasty. Paracentesis. ENCOUNTER: Subsequent ACUITY: 1 month PAIN SCORE: 5/10 LOCATION: Right lower quadrant FLUID: Total volume of 4,600 cc of clear, yellow fluid was removed. Fluid was discarded. Paracentesis was therapeutic only. Post procedure scanning reveals no hematoma or other complication. TECHNIQUE: 1. Ultrasound guidance for abdominal paracentesis. 2. Paracentesis. The risks, benefits, and alternatives to ultrasound guided paracentesis were explained to the patient in detail including the risk of bleeding and infection. Written and verbal informed consent was obt ained. With the patient on the ultrasound table, ultrasound imaging was used to select the most appropriate approach for paracentesis. Overlying skin was prepped and draped in the usual sterile fashion and wi th a local anesthetic, a dermatotomy was made with an 11 blade scalpel. A 6 [place] [id number] ca theter was introduced into the peritoneal cavity and fluid was collected. The patient tolerated the procedure well and left the ultrasound suite in stable condition. CONCLUSION: Uncomplicated ultrasound guided paracentesis. Jagdeep Sofia MD on June 03, 2017 at 13:13 Board Certified Radiologist. This report was verified electronically.
== END 2017-06-03 13:15 | disposition home or self-care (01) ==
LOC: HRAD 09:07 → HRIP 09:16 → HRAD 13:15
DX: R18.8 Other ascites (principal); E05.90 Thyrotoxicosis, unspecified without thyrotoxic crisis or storm; J44.9 Chronic obstructive pulmonary disease, unspecified; E11.9 Type 2 diabetes mellitus without complications; D64.9 Anemia, unspecified; R25.1 Tremor, unspecified; Z85.3 Personal history of malignant neoplasm of breast; Z01.818 Encounter for other preprocedural examination
CPT/HCPCS: 36415; 49083; 85610; C1729